=== PATIENT | male | born 1975 | race Caucasian/White ===

== ENCOUNTER 2023-10-13 21:34 | Emergency (ER) | payer OTHER, SELFPAY ==
[2023-10-13 21:38] VITALS: BP 176/114; PULSE 82; RESP 16; TEMP 36.9; O2SAT 98; BMI 32.9
[2023-10-13 22:10] VITALS: BP 160/98; PULSE 89; RESP 18; O2SAT 98
--- NOTE | 2023-10-13 22:20 | ED_ITS ---
HPI - Dental/Oral General Chief complaint: Dental/Oral Stated complaint: TOOTH ACHE Time Seen by Provider: 10/13/23 21:45 Source: patient Mode of arrival: walk-in History of Present Illness HPI Narrative: 47-year-old male to the emergency room chief complaint several days of dental pain. His right posterior molar had a previous cavity which was filled. Over the last six days he has had some increasing pain in this area. The ventricular Tylenol and ibuprofen at home with only minimal relief of symptoms. He will see his dentist early this week. Related Data Previous Rx's Medication Instructions Recorded hydrocodone 5 mg-acetaminophen 325 1 tab PO Q6H PRN pain 3 days #6 10/13/23 mg tablet tabs penicillin V potassium 500 mg 500 mg PO Q6H 7 days #28 tabs 10/13/23 tablet Allergies Allergy/AdvReac Type Severity Reaction Status Date / Time No Known Drug Allergies Allergy Verified 10/13/23 21:42 Review of Systems ROS Status of ROS 10 or more systems reviewed and unremark able except as noted in history and below Exam Narrative Exam Narrative: VITALS: I have reviewed the triage vital signs.? GENERAL: Well developed, well appearing adult in no acute distress.?? NEURO: Alert and oriented. Moves all extremities. Face is symmetric and expressive.? EYES: PERRL. No scleral icterus or conjunctival injection. No discharge.? HENT: Normocephalic, atraumatic. Hearing is grossly intact. Nares grossly patent and without discharge. Mucous membranes moist.?Generally poor dentition. Gingival erythema surrounding the right posterior lower molar with obvious caries. NECK: No JVD. Patient moves neck without restriction.? EXTREMITIES: Symmetric muscle bulk. No joint swelling. No clubbing, cyanosis, or deformity.? SKIN: Warm and dry. Normal turgor. No rash or lesions appreciated.? PSYCH: Mood, affect, and interaction is appropriate to the setting. Constitutional Vital Signs, click to edit/add: Last Vital Signs Temp 98.5 F 10/13/23 21:38 Pulse 89 10/13/23 22:10 Resp 18 10/13/23 22:10 BP 160/98 H 10/13/23 22:10 Pulse Ox 98 10/13/23 22:10 O2 Del Method Room Air 10/13/23 22:10 Course Vital Signs Vital signs: Vital Signs Temperature 98.5 F 10/13/23 21:38 Pulse Rate 82 10/13/23 21:38 Respiratory Rate 16 10/13/23 21:38 Blood Pressure 176/114 H 10/13/23 21:38 Pulse Oximetry 98 10/13/23 21:38 Oxygen Delivery Method Room Air 10/13/23 21:38 Temperature 98.5 F 10/13/23 21:38 Pulse Rate 89 10/13/23 22:10 Respiratory Rate 18 10/13/23 22:10 Blood Pressure 160/98 H 10/13/23 22:10 Pulse Oximetry 98 10/13/23 22:10 Oxygen Delivery Method Room Air 10/13/23 22:10 MDM - Dental/Oral MDM Narrative Medical decision making narrative: 47-year-old male with dental pain. Vital stable, patient is afebrile. Records r evjulianawed. He is given a short supply of narcotics he can see his dentist. He is given a prescription for penicillin.Return precautions were discussed. All questions were answered. Patient was discharged home. Discharge Plan Discharge Chief Complaint: Dental/Oral Clinical Impression: Dental abscess Patient Disposition: Home, Self-Care Time of Disposition Decision: 21:49 Condition: Good Mode of Transportation: Private Vehicle Prescriptions / Home Meds: New penicillin V potassium 500 mg tablet 500 mg PO Q6H 7 Days Qty: 28 0RF hydrocodone-acetaminophen 5-325 mg tablet 1 tab PO Q6H PRN (Reason: pain) 3 Days Qty: 6 0RF Print Language: Greenlandic Instructions: Dental Abscess (ED) Additional Instructions: Follow-up with her dentist early this week. Take medications as prescribed. Stand Alone Forms: Portal Instructions Referrals: HELIO REID [Primary Care Provider] - 1 week Discharge Date/Time: 10/13/23 22:12
== END 2023-10-13 22:12 | disposition home or self-care (01) ==
PROVIDERS: Emergency Provider Student in an Organized Health Care Education/Training Program; PCP Family Medicine
DX: K04.7 Periapical abscess without sinus (principal)
CPT/HCPCS: 99283

== ENCOUNTER 2024-01-08 14:13 | Outpatient (OUT) | payer OTHER, SELFPAY ==
--- NOTE | 2024-01-08 14:18 | XR_ITS ---
The [address] [address] Patient Name: JEFFREY CHIANG JR MRN: [id number] date: 1975 Sex: M Assigned Patient Location: [facility] Current Patient Location: Accession/Order Number: [id number] Exam Date: 01/08/2024 14:26 Report Date: 01/09/2024 09:02 At the request of: MONIQUE MONTOYA Procedure: XR shoulder RT min 2V PROCEDURE: XR shoulder RT min 2V HISTORY: right shoulder pain M25.511 , chronic COMPARISON: None. FINDINGS: BONES:Mild narrowing of the acromioclavicular joint and small undersurface osteophytes. Unremarkable humeral head and glenohumeral joint. SOFT TISSUES:No visible soft tissue swelling. EFFUSION:None visible. OTHER: Negative. XR/XR shoulder RT min 2V IMPRESSION: 1. No acute bone abnormality. 2. Mild degenerative changes of the acromioclavicular joints which can predispose to rotator cuff injury. Electronically authenticated by: LUCILLE MELISSA Date: 01/09/2024 09:02
--- OUTSIDE RECORDS SUMMARY | 2024-01-08 14:19 | XMS_ITS | CCD ---
Author Name Unknown Address [address] [facility] [facility] [address] [place] [address] Organization [facility] Care Team Providers Care Director Of Brand Marketing Name Role Phone REAL, DR DANIAL Mcclellan Consulting Unavailabl e BAUGH, DR TAMEKA Manriquez Primary Care Unavailable VARUNECK, DR DANIAL Mcclellan Attending Unavailabl e REINECK, DR DANIAL Mcclellan Admitting Unavailabl e Filippone, Tabihta Consulting Unavailable Ismael, Ana M Tafoya Primary Care Physician [phone] Ismael, Ana M Tafoya Attending Unavailable Ismael, Ana M Tafoya Attending Unavailable Ismael, Ana M Tafoya Attending Unavailable Ismael, Ana M Tafoya Attending Unavailable Ismael, Ana M Tafoya Attending Unavailable Ismael, Ana M Tafoya Admitting Unavailable Ismael, Ana M Tafoya Attending Unavailable Ismael, Ana M Tafoya Attending Unavailable Ismael, Ana M Tafoya Attending Unavailable Ismael, Ana M L Attending Unavailable Ismael, Ana M L Attending Unavailable Ismael, Ana M L Attending Unavailable Ismael, Ana M L Attending Unavailable Ismael, Ana M L Attending Unavailable Ismael, Ana M L Attending Unavailable Allergies Allergy Classification Reported Allergen(s) Allergy Type Date of Onset Reaction(s) Facility (1 source) No Known Medication Allergies; Translations: [No Known Medication Allergies] Propensity to adverse reactions (disorder) [facility] Repository Medications Current Medications Medication Drug Class(es) Dates Sig (Normalized) Sig (Original) albuterol 0.83 mg/ml inhalation solution (1 source) beta2-Adrenergic Agonist Start: 02-13-2023 take 2.5 mg by inhalation every four hours as needed albuterol 0.083% Inh Beth 3 mL 2.5 mg, 3 mL, NEB, q4hr, 100 EA, Refill(s) 1, as needed, [facility] #[id number], 176, cm, 02/13/23 9:01:00 EDT, Height/Length Dosing, 108.4, kg, 02/13/23 9:01:00 EDT, Weight Dosing Start Date: 02/13/23 Status: Ordered Albuterol (Eqv-ProAir HFA) 90 mcg/inh inhalation aerosol (1 source) Start: 02-13-2023 take 2 puff(s) by inhalation every six hours Albuterol (Eqv-ProAir HFA) 90 mcg/inh inhalation aerosol 2 puff(s), Inhalation, q6hr, 8.5 gm, Refill(s) 2, [facility] #[id number], 176, cm, 02/13/23 9:01:00 EDT, Height/Length Dosing, 108.4, kg, 02/13/23 9:01:00 EDT, Weight Dosing Start Date: 02/13/23 Status: Ordered bisoprolol fumarate 5 mg / hydroCHLOROthiazide 6.25 mg oral tablet (1 source) Thiazide Diuretic, beta-Adrenergic Elan Start: 02-13-2023 take 1 tablet by mouth once daily bisoprolol-hydr ochlorothiazide 5 mg-6.25 mg Tab 1 tab(s), Oral, Daily, 90 tab(s), Refill(s) 3, [facility] #[id number], 176, cm, 02/13/23 9:01:00 EDT, Height/Length Dosing, 108.4, kg, 02/13/23 9:01:00 EDT, Weight Dosing Start Date: 02/13/23 Status: Ordered 120 actuat fluticasone propionate 0.11 mg/actuat metered dose inhaler (2 sources) Corticosteroid Start: 02-13-2023 take 2 puff(s) by mouth twice daily Flovent HFA 110 Aerosol = 2 puff(s), Inhalation, BID, rinse mouth and throat after use, # 12 gram, Refills(s) 2, Pharmacy: [facility] #[id number], 176, cm, 02/13/23 9:01:00 EDT, Height/Length Dosing, 108.4, kg, 02/13/23 9:01:00 EDT, Weight Dosing Start Date: 02/13/23 Status: Ordered Start: 02-13-2023 Flonase 0.05 m g/inh [place] 2 spray(s), Nasal, Daily, 16 gram, Refill(s) 0, each nostril, [facility] #[id number], 176, cm, 02/13/23 9:01:00 EDT, Height/Length Dosing, 108.4, kg, 02/13/23 9:01:00 EDT, Weight Dosing Start Date: 02/13/23 Status: Ordered phentermine hydrochloride 37.5 mg oral tablet (1 source) Sympathomimetic Amine Anorectic Start: 03-04-2023 take 1 tablet by mouth once daily phentermine 37.5 mg Tab 37.5 mg = 1 tab(s), Oral, Daily, # 30 tab(s), Refills(s) 0, Pharmacy: [facility] #[id number], 176, cm, 03/04/23 8:31:00 EDT, Height/Length Dosing, 109.2, kg, 03/04/23 8:31:00 EDT, Weight Dosing Start Date: 03/04/23 Status: Ordered Problems Problem Classification Problem Date Documented Date Episodic/Chronic Asthma (2 sources) Unspecified asthma, uncomplicated; Translations: [Asthma] Onset: 01-08-2022 02-12-2023 Chronic Esophageal disorders (1 source) Gastroesophageal reflux disease 02-12-2023 Chronic Essential hypertension (1 source) Hypertensive disorder 02-12-2023 Chronic Nonspecific chest pain (1 source) Other chest pain; Translations: [OTHER CHEST PAIN] Onset: 01-08-2022 Episodic Other aftercare (1 source) Other superintendent terminal (current) drug therapy; Translations: [OTH CASING FLUID TENDER CURRENT DRUG THERAPY] Onset: 01-08-2022 Episodic Other connective tissue disease (1 source) Muscle atrophy 02-12-2023 Episodic Other lower respiratory disease (3 sources) Pleurodynia; Translations: [PLEURODYNIA] Onset: 01-07-2022 Episodic Other nervous system disorders (1 source) Complex regional pain syndrome of lower limb 02-12-2023 Chronic Other nutritional; endocrine; and metabolic disorders (1 source) Body mass index 30+ - obesity 03-04-2023 Chronic Skin and subcutaneous tissue infections (1 source) Cellulitis and abscess of lower limb 02-12-2023 Episodic Substance-related disorders (1 source) Smoker 03-04-2023 Chronic Unclassified (1 source) PERSONAL HISTORY OF COVID-19; Translations: [PERSONAL HISTORY OF COVID-19] Onset: 01-08-2022 Results Test Name Value Interpretation Reference Range Facility Physician Orderon 01-01-2024 Physician Order [id number] .00TIFF [facility] Ambulatory Visit Summaryon 0 12-31-2023 Ambulatory Visit Summary JEFFREY CHIANG :1975 Visit Date:12/31/2023 Ambulatory Visit Instructions Your Diagnosis Encounter for weight management Right shoulder pain BMI 33.0-33.9,adult Smoker Your Care Team Attending Physician - Ana M Bay Primary Care Physician - Ana M Bay This Is Your Medications List albuterol (albuterol 0.083% Inh Beth 3 mL) bisoprolol-hydrochlor othiazide (bisoprolol-hydrochlo rothiazide 5 mg-6.25 mg Tab) fluticasone (Flovent HFA 110 Aerosol) metformin (metformin 500 mg Tab) phentermine (phentermine 37.5 mg Tab) Procedures Performed Bilateral carpal tunnel syndrome, History of elbow surgery, Surgery. Discharge Vitals Heart Rate (Peripheral) 80 Respiratory Rate 18 Blood Pressure 136/84 Height 174 cm Height 69 in Weight 102.874 kg Weight 226.323 lb BMI 33.98 What to do next Scheduled Follow-Up Appointments 2023 3:00 PM EDT With: Ana M Bay Where: [facility] Family Medicine Jerry [facility] Family Medicine Office/Clini c Noteon 12-31-2023 Family Medicine Office/Clinic Note HPI Staff Jeffrey is a 48 year old male presenting for 1 month follow up Weight management: Started Phentermine on 11/04/23 Sleeping well:Yes, 6-8 hours Chest pain:No Tremors:No Headaches:No Heart fluttering:No Blurred Vision:No Beginning weight: 228.8Ibs Previous weight: 227.10Ibs Today's weight: 226 Ibs Questions/Concerns: need refill on albuterol Inhaler to [facility] in [place] History of Present Illness pt presents today for weight management Review of Systems PHQ Score Initial Depression Screen Score: 0 SCORE ROS - Provider Constitutional: no fever, no chills, no sweats, no fatigue Respiratory: no shortness of breath, no cough, no orthopnea, no wheezing. Cardiovascular: no chest pain, no palpitations, no edema. Neurologic: no headache, no dizziness, no numbness, no weakness. Physical Exam Vitals & Measurements HR: 80(Peripheral) RR: 18 BP: 136/84 SpO2: 95% HT: 69 in HT: 174 cm WT: 102.874 kg WT: 226.323 lb BMI: 33.98 General: alert, no acute distress ENMT: oral mucosa moist, no pharyngeal erythema or exudate Cardiovascular: regular rate and rhythm, normal peripheral perfusion Respiratory: Lungs CTA, respirations non labored Extremities: no deformity, no trauma Neurological: oriented x 4, LOC appropriate for age, CN II-XII intact, motor strength equal & normal bilaterally, speech normal Assessment/Plan 1. Encounter for weight management (Z76.89: Persons encountering health services in other specified circumstances) pt presents today for weight management. is down 1 pound. will continue adipex and metformin. RTC 4 weeks Ordered: liraglutide, 0.6 mg, SubCutaneous, Daily, increase dose by 0.6mg every 4 weeks. week 1: 0.6mg week 2: 1.2mg week 3: 1.8mg week 4: 2.4mg week 5+: 3.0mg, # 15 mL, Refills(s) 0, Pharmacy: [facility] #[id number], 174, cm, 12/02/23 14:25:00 EST, Height/Length Dosing, 103... metformin, 500 mg = 1 tab(s), Oral, BID, # 60 tab(s), Refills(s) 3, Pharmacy: [facility] #[id number], 174, cm, 12/02/23 14:25:00 EST, Height/Length Dosing, 103.2, kg, 12/02/23 14:25:00 EST, Weight Dosing metformin, 500 mg = 1 tab(s), Oral, BID, # 60 tab(s), Refills(s) 3, Pharmacy: [facility] #[id number], 174, cm, 12/31/23 14:35:00 EST, Height/Length Dosing, 102.9, kg, 12/31/23 14:35:00 EST, Weight Dosing 2. Right shoulder pain (M25.511: Pain in right shoulder) patient continues to have right shoulder pain. he has been taking ibuprofen and tylenol for the pain. has been doing at home exercises daily at home. but pain still continues. will order x ray and possibly MRI if necessary. xray order to be done at [facility] 3. BMI 33.0-33.9,adult (Z68.33: Body mass index [BMI] 33.0-33.9, adult) BMI education complete 4. Smoker (F17.200: Nicotine dependence, unspecified, uncomplicated) consider not smoking Orders: albuterol, 2.5 mg, 3 mL, NEB, q4hr, 100 EA, Refill(s) 1, as needed, [facility] #[id number], 174, cm, 12/31/23 14:35:00 EST, Height/Length Dosing, 102.9, kg, 12/31/23 14:35:00 EST, Weight Dosing albuterol, 2.5 mg, 3 mL, NEB, q4hr, 100 EA, Refill(s) 1, as needed, [facility] #[id number], 176, cm, 02/13/23 9:01:00 EDT, Height/Length Dosing, 108.4, kg, 02/13/23 9:01:00 EDT, Weight Dosing phentermine, 37.5 mg = 1 tab(s), Oral, Daily, # 30 tab(s), Refills(s) 0, Pharmacy: [facility] #[id number], 174, cm, 12/31/23 14:35:00 EST, Height/Length Dosing, 102.9, kg, 12/31/23 14:35:00 EST, Weight Dosing phentermine, 37.5 mg = 1 tab(s), Oral, Daily, # 30 tab(s), Refills(s) 0, Pharmacy: [facility] #[id number], 174, cm, 12/02/23 14:25:00 EST, Height/Length Dosing, 103.2, kg, 12/02/23 14:25:00 EST, Weight Dosing Follow-up No qualifying data available Problem List/Past Medical History Ongoing Asthma Atrophy of muscle BMI 32.0-32.9,adult BMI 35.0-35.9,adult Cellulitis and abscess of leg Encounter for weight management Excessive dietary caloric intake GERD (gastroesophageal reflux disease) Hypertension Insulin resistance Reflex sympathetic dystrophy of lower limb Right shoulder pain Smoker Historical No qualifying data Procedure/Surgical History Bilateral carpal tunnel syndrome, History of elbow surgery, Surgery. Medications albuterol 0.083% Inh Beth 3 mL, 2.5 mg= 3 mL, NEB, q4hr, 1 refills bisoprolol-hydrochlor othiazide 5 mg-6.25 mg Tab, 1 tab(s), Oral, Daily, 3 refills Flovent HFA 110 Aerosol, 2 puff(s), Inhalation, BID, 2 refills metformin 500 mg Tab, 500 mg= 1 tab(s), Oral, BID, 3 refills phentermine 37.5 mg Tab, 37.5 mg= 1 tab(s), Oral, Daily Allergies No Known Medication Allergies Social History Alcohol Current, Beer, Daily, 02/13/2023 Substance Abuse - Denies Substance Abuse, 02/13/2023 Tobacco 10 or more cigarettes (1/2 pack or more)/day in last 30 days Tobacco Use:. Never Smokeless Tobacco Use:. Cigarettes, Ready to change: No. Household tobacco concerns: No. Yes, 12/31/2023 Family History Hypertension: Mother and Father. Immunizations Vaccine Date Status Comments SARS-CoV-2 (C (more content not included)... Normal [facility] Comment on above: Result Comment: Elec tronically Signed By: Ana M Bay\.br\Date and Time Signed: 12/31/23 15:01 EST Ambulatory Visit Summaryon 0 12-02-2023 Ambulatory Visit Summary JEFFREY CHIANG :1975 Visit Date:12/02/2023 Ambulatory Visit Instructions Your Diagnosis BMI 34.0-34.9,adult Smoker Your Care Team Attending Physician - Ana M Bay Primary Care Physician - Ana M Bay This Is Your Medications List albuterol (albuterol 0.083% Inh Beth 3 mL) bisoprolol-hydrochlor othiazide (bisoprolol-hydrochlo rothiazide 5 mg-6.25 mg Tab) fluticasone (Flovent HFA 110 Aerosol) metformin (metformin 500 mg Tab) phentermine (phentermine 37.5 mg Tab) Procedures Performed Bilateral carpal tunnel syndrome, History of elbow surgery, Surgery. Discharge Vitals Heart Rate (Peripheral) 78 Respiratory Rate 18 Blood Pressure 134/88 Height 174 cm Height 69 in Weight 103.23 kg Weight 227.106 lb BMI 34.1 What to do next Scheduled Follow-Up Appointments Saturday 2:40 PM EST With: Ana M Bay Where: [facility] Family Medicine [facility] Normal [facility] Medicine Office/Clini c Noteon 12-02-2023 Family Medicine Office/Clinic Note HPI Staff Jeffrey is a 48 year old male presenting for 1 month follow up Weight management: Started Phentermine and Metformin on 11/04/23 Sleeping well:Yes, 6-8 hours Chest pain:No Tremors:No Headaches:No Heart fluttering:No Blurred Vision:No Beginning weight: 228.8Ibs/ 104.kg Previous weight: same Today's weight: 227.10 IBs/ 103.2kg Questions/Concerns: none History of Present Illness pt presents today for weight management Review of Systems PHQ Score Initial Depression Screen Score: 0 SCORE ROS - Provider Constitutional: no fever, no chills, no sweats, no fatigue Respiratory: no shortness of breath, no cough, no orthopnea, no wheezing. Cardiovascular: no chest pain, no palpitations, no edema. Neurologic: no headache, no dizziness, no numbness, no weakness. Physical Exam Vitals & Measurements HR: 78(Peripheral) RR: 18 BP: 134/88 SpO2: 98% HT: 69 in HT: 174 cm WT: 103.23 kg WT: 227.106 lb BMI: 34.1 General: alert, no acute distress ENMT: oral mucosa moist, no pharyngeal erythema or exudate Cardiovascular: regular rate and rhythm, normal peripheral perfusion Respiratory: Lungs CTA, respirations non labored Extremities: no deformity, no trauma Neurological: oriented x 4, LOC appropriate for age, CN II-XII intact, motor strength equal & normal bilaterally, speech normal Assessment/Plan 1. Encounter for weight management (Z76.89: Persons encountering health services in other specified circumstances) pt presents today for weight management. is down 1 pound since last visit. pt states he feels like the metformin didn't really make a difference. discussed trying sexenda to see if insurance will cover it. if insurance denies it, will send rx for adipex. RTC 4 weeks. Ordered: liraglutide, 0.6 mg, SubCutaneous, Daily, increase dose by 0.6mg every 4 weeks. week 1: 0.6mg week 2: 1.2mg week 3: 1.8mg week 4: 2.4mg week 5+: 3.0mg, # 15 mL, Refills(s) 0, Pharmacy: [facility] #[id number], 174, cm, 12/02/23 14:25:00 EST, Height/Length Dosing, 103... methylPREDNISolone, = 1 packet(s), Oral, As Directed, as directed on package labeling, X 6 day(s), # 21 tab(s), Refills(s) 0, Pharmacy: [facility] #[id number], 174, cm, 12/02/23 14:25:00 EST, Height/Length Dosing, 103.2, kg, 12/02/23 14:25:00 EST, Weight Dosing 2. Right shoulder pain (M25.511: Pain in right shoulder) medrol dose pack sent in possible tendonitis. pt states shoulder started hurting when bowling. and now he gets pain even at rest. may consider referral to pain management for injection Ordered: methylPREDNISolone, = 1 packet(s), Oral, As Directed, as directed on package labeling, X 6 day(s), # 21 tab(s), Refills(s) 0, Pharmacy: [facility] #[id number], 174, cm, 12/02/23 14:25:00 EST, Height/Length Dosing, 103.2, kg, 12/02/23 14:25:00 EST, Weight Dosing 3. BMI 34.0-34.9,adult (Z68.34: Body mass index [BMI] 34.0-34.9, adult) bmi education complete Ordered: methylPREDNISolone, = 1 packet(s), Oral, As Directed, as directed on package labeling, X 6 day(s), # 21 tab(s), Refills(s) 0, Pharmacy: [facility] #[id number], 174, cm, 12/02/23 14:25:00 EST, Height/Length Dosing, 103.2, kg, 12/02/23 14:25:00 EST, Weight Dosing 4. Smoker (F17.200: Nicotine dependence, unspecified, uncomplicated) consider not smoking Ordered: methylPREDNISolone, = 1 packet(s), Oral, As Directed, as directed on package labeling, X 6 day(s), # 21 tab(s), Refills(s) 0, Pharmacy: [facility] #[id number], 174, cm, 12/02/23 14:25:00 EST, Height/Length Dosing, 103.2, kg, 12/02/23 14:25:00 EST, Weight Dosing Follow-up No qualifying data available Problem List/Past Medical History Ongoing Asthma Atrophy of muscle BMI 32.0-32.9,adult BMI 35.0-35.9,adult Cellulitis and abscess of leg Encounter for weight management Excessive dietary caloric intake GERD (gastroesophageal reflux disease) Hypertension Insulin resistance Reflex sympathetic dystrophy of lower limb Right shoulder pain Smoker Historical No qualifying data Procedure/Surgical History Bilateral carpal tunnel syndrome, History of elbow surgery, Surgery. Medications albuterol 0.083% Inh Beth 3 mL, 2.5 mg= 3 mL, NEB, q4hr, 1 refills bisoprolol-hydrochlor othiazide 5 mg-6.25 mg Tab, 1 tab(s), Oral, Daily, 3 refills Flovent HFA 110 Aerosol, 2 puff(s), Inhalation, BID, 2 refills liraglutide 6 mg/mL subcutaneous injection, 0.6 mg, SubCutaneous, Daily Medrol 4 mg Tab, 1 packet(s), Oral, As Directed metformin 500 mg Tab, 500 mg= 1 tab(s), Oral, BID, 1 refills phentermine 37.5 mg Tab, 37.5 mg= 1 tab(s), Oral, Daily Allergies No Known Medication Allergies Social History Alcohol Current, Beer, Daily, 02/13/2023 Substance Abuse - Denies Substance Abuse, 02/13/2023 Tobacco 10 or more cigarettes (1/2 pack or more)/day in last 30 days Tobacco Use:. Never Smokeless Tobacco Use:. Cigarettes, Ready to change: No. Household tobacco concerns: No. Yes, 12/02/2023 Family History Hypertension: Mother and Father. Immunizations Vaccine (more content not included)... Normal [facility] Comment on above: Result Comment: Elec tronically Signed By: Ana M Bay\.br\Date and Time Signed: 12/02/23 15:07 EST Ambulatory Visit Summaryon 0 11-04-2023 Ambulatory Visit Summary JEFFREY CHIANG :1975 Visit Date:11/04/2023 Ambulatory Visit Instructions Your Diagnosis Encounter for weight management BMI 34.0-34.9,adult Your Care Team Attending Physician - Ana M Bay Primary Care Physician - Ana M Bay This Is Your Medications List albuterol (albuterol 0.083% Inh Beth 3 mL) bisoprolol-hydrochlor othiazide (bisoprolol-hydrochlo rothiazide 5 mg-6.25 mg Tab) fluticasone (Flovent HFA 110 Aerosol) phentermine (phentermine 37.5 mg Tab) semaglutide (Ozempic 2 mg/3 mL (0.25 mg or 0.5 mg dose) subcutaneous solution) Procedures Performed Bilateral carpal tunnel syndrome, History of elbow surgery, Surgery. Discharge Vitals Heart Rate (Peripheral) 74 Blood Pressure 128/78 Height 174.0 cm Height 69 in Weight 104.0 kg Weight 228.8 lb BMI 34.35 What to do next Scheduled Follow-Up Appointments Saturday 3:00 PM EST With: nAa M Bay Where: [facility] Family Medicine Jerry Normal [facility] Family Medicine Office/Clini c Noteon 11-04-2023 Family Medicine Office/Clinic Note Chief Complaint interested in weight loss HPI Staff Jeffrey is a 48 year old male presenting to discuss weight loss Weight management Sleeping well:Yes, 5 hourse. Patient reports this is normal for him. Chest pain:No Tremors:No Headaches:No Heart fluttering:No Blurred Vision:No Questions/Concerns: Ozempic was not started as insurance would not approve it and Buderer cost was $200. It was too expensive. current weight: 104.0 kg Current BMI 34.35 History of Present Illness pt presents today for weight managment Review of Systems PHQ Score Initial Depression Screen Score: 0 SCORE ROS - Provider Constitutional: no fever, no chills, no sweats, no fatigue Respiratory: no shortness of breath, no cough, no orthopnea, no wheezing. Cardiovascular: no chest pain, no palpitations, no edema. Neurologic: no headache, no dizziness, no numbness, no weakness. Physical Exam Vitals & Measurements HR: 74(Peripheral) BP: 128/78 SpO2: 97% HT: 69 in HT: 174.0 cm WT: 104.0 kg WT: 228.8 lb BMI: 34.35 General: alert, no acute distress ENMT: oral mucosa moist, no pharyngeal erythema or exudate Cardiovascular: regular rate and rhythm, normal peripheral perfusion Respiratory: Lungs CTA, respirations non labored Extremities: no deformity, no trauma Neurological: oriented x 4, LOC appropriate for age, CN II-XII intact, motor strength equal & normal bilaterally, speech normal Assessment/Plan 1. Encounter for weight management (Z76.89: Persons encountering health services in other specified circumstances) pt presents today to discuss weight management,. pt has put on 13 pounds since June. is unable to afford ozempic will order adipex and metformin. RTC 4 weeks Ordered: metformin, 500 mg = 1 tab(s), Oral, BID, # 60 tab(s), Refills(s) 1, Pharmacy: [facility] #[id number], 174, cm, 11/04/23 14:47:00 EST, Height/Length Dosing, 104, kg, 11/04/23 14:47:00 EST, Weight Dosing 2. BMI 34.0-34.9,adult (Z68.34: Body mass index [BMI] 34.0-34.9, adult) BMI education complete Ordered: metformin, 500 mg = 1 tab(s), Oral, BID, # 60 tab(s), Refills(s) 1, Pharmacy: [facility] #[id number], 174, cm, 11/04/23 14:47:00 EST, Height/Length Dosing, 104, kg, 11/04/23 14:47:00 EST, Weight Dosing Orders: phentermine, 37.5 mg = 1 tab(s), Oral, Daily, # 30 tab(s), Refills(s) 0, Pharmacy: [facility] #[id number], 174, cm, 11/04/23 14:47:00 EST, Height/Length Dosing, 104, kg, 11/04/23 14:47:00 EST, Weight Dosing Follow-up No qualifying data available Problem List/Past Medical History Ongoing Asthma Atrophy of muscle BMI 32.0-32.9,adult BMI 35.0-35.9,adult Cellulitis and abscess of leg Encounter for weight management Excessive dietary caloric intake GERD (gastroesophageal reflux disease) Hypertension Insulin resistance Reflex sympathetic dystrophy of lower limb Smoker Historical No qualifying data Procedure/Surgical History Bilateral carpal tunnel syndrome, History of elbow surgery, Surgery. Medications albuterol 0.083% Inh Beth 3 mL, 2.5 mg= 3 mL, NEB, q4hr, 1 refills bisoprolol-hydrochlor othiazide 5 mg-6.25 mg Tab, 1 tab(s), Oral, Daily, 3 refills Flovent HFA 110 Aerosol, 2 puff(s), Inhalation, BID, 2 refills metformin 500 mg Tab, 500 mg= 1 tab(s), Oral, BID, 1 refills Ozempic 2 mg/3 mL (0.25 mg or 0.5 mg dose) subcutaneous solution, 0.25 mg, SubCutaneous, qWeek phentermine 37.5 mg Tab, 37.5 mg= 1 tab(s), Oral, Daily Allergies No Known Medication Allergies Social History Alcohol Current, Beer, Daily, 02/13/2023 Substance Abuse - Denies Substance Abuse, 02/13/2023 Tobacco 10 or more cigarettes (1/2 pack or more)/day in last 30 days Tobacco Use:. Never Smokeless Tobacco Use:. Cigarettes, Ready to change: No. Household tobacco concerns: No. Yes, 11/04/2023 Family History Hypertension: Mother and Father. Immunizations Vaccine Date Status Comments SARS-CoV-2 (COVID-19) mRNA BNT-162b2 vax 10/24/2021 Recorded SARS-CoV-2 (COVID-19) Ad26 vaccine 03/17/2021 Recorded 2023-02-12: [id number] Normal [facility] Comment on above: Result Comment: Elec tronically Signed By: Ana M Bay\.br\Date and Time Signed: 11/04/23 15:15 EST Pre-Certification Formon Pre-Certification Form [id number]. 00TIFF [facility] Retail - Clinical Noteon Retail - Clinical Note [id number]. 00TIFF [facility] Ambulatory Visit Summaryon 1 Ambulatory Visit Summary JEFFREY CHIANG :1975 Visit Date:08/21/2023 Ambulatory Visit Instructions Your Diagnosis Insulin resistance Encounter for weight management BMI 33.0-33.9,adult Smoker Your Care Team Attending Physician - Ana M Bay Primary Care Physician - Ana M Bay This Is Your Medications List albuterol (albuterol 0.083% Inh Beth 3 mL) bisoprolol-hydrochlor othiazide (bisoprolol-hydrochlo rothiazide 5 mg-6.25 mg Tab) fluticasone (Flovent HFA 110 Aerosol) phentermine (phentermine 37.5 mg Tab) semaglutide (Ozempic 2 mg/3 mL (0.25 mg or 0.5 mg dose) subcutaneous solution) Procedures Performed Bilateral carpal tunnel syndrome, History of elbow surgery, Surgery. Discharge Vitals Heart Rate (Peripheral) 84 Respiratory Rate 18 Blood Pressure 130/84 Height 174 cm Height 69 in Weight 101.9 kg Weight 224.18 lb BMI 33.66 What to do next Scheduled Follow-Up Appointments Saturday 3:00 PM EST With: Ana M Bay Where: [facility] Family Medicine Office/Clini c Noteon 08-21-2023 Family Medicine Office/Clinic Note HPI Staff Jeffrey is a 47 year old male presenting for 1 month follow up Weight management: Started Phentermine on 03/04/23 Sleeping well:Yes, 6-8 hours Chest pain:No Tremors:No Headaches:No Heart fluttering:No Blurred Vision:No Beginning weight: 240.24Ibs/109.2kg Previous weight: 20453Sex/97.97Kg Today's weight: 101.9Kg/224.18ibs Questions/Concerns: pt says he has joined the [employer] center but hasn't gone yet and doesn't think his eating choices have been the best. History of Present Illness pt presetns for weight managment Review of Systems PHQ Score Initial Depression Screen Score: 0 ROS - Provider Constitutional: no fever, no chills, no sweats, no fatigue Respiratory: no shortness of breath, no cough, no orthopnea, no wheezing. Cardiovascular: no chest pain, no palpitations, no edema. Neurologic: no headache, no dizziness, no numbness, no weakness. Physical Exam Vitals & Measurements HR: 84(Peripheral) RR: 18 BP: 130/84 SpO2: 98% HT: 69 in HT: 174 cm WT: 101.9 kg WT: 224.18 lb BMI: 33.66 General: alert, no acute distress ENMT: oral mucosa moist, no pharyngeal erythema or exudate Cardiovascular: regular rate and rhythm, normal peripheral perfusion Respiratory: Lungs CTA, respirations non labored Extremities: no deformity, no trauma Neurological: oriented x 4, LOC appropriate for age, CN II-XII intact, motor strength equal & normal bilaterally, speech normal Assessment/Plan 1. Insulin resistance (E88.819: Insulin resistance, unspecified) pt presents to discuss weight management. adipex is not longer effective. pt has gained 8 pounds since last visit. will order ozempic through pharmacy. if insurance does not cover it, will send order to [facility]. all questions answered. RTC 4 weeks Ordered: semaglutide, 0.25 mg, SubCutaneous, qWeek, # 1 EA, Refills(s) 0, Pharmacy: [facility] #[id number], 174, cm, 08/21/23 14:21:00 EDT, Height/Length Dosing, 101.9, kg, 08/21/23 14:21:00 EDT, Weight Dosing 2. Encounter for weight management (Z76.89: Persons encountering health services in other specified circumstances) see above Ordered: semaglutide, 0.25 mg, SubCutaneous, qWeek, # 1 EA, Refills(s) 0, Pharmacy: [facility] #[id number], 174, cm, 08/21/23 14:21:00 EDT, Height/Length Dosing, 101.9, kg, 08/21/23 14:21:00 EDT, Weight Dosing 3. BMI 33.0-33.9,adult (Z68.33: Body mass index [BMI] 33.0-33.9, adult) BMI education complete Ordered: semaglutide, 0.25 mg, SubCutaneous, qWeek, # 1 EA, Refills(s) 0, Pharmacy: [facility] #[id number], 174, cm, 08/21/23 14:21:00 EDT, Height/Length Dosing, 101.9, kg, 08/21/23 14:21:00 EDT, Weight Dosing 4. Smoker (F17.200: Nicotine dependence, unspecified, uncomplicated) consider not smoking Ordered: semaglutide, 0.25 mg, SubCutaneous, qWeek, # 1 EA, Refills(s) 0, Pharmacy: [facility] #[id number], 174, cm, 08/21/23 14:21:00 EDT, Height/Length Dosing, 101.9, kg, 08/21/23 14:21:00 EDT, Weight Dosing Follow-up No qualifying data available Problem List/Past Medical History Ongoing Asthma Atrophy of muscle BMI 32.0-32.9,adult BMI 35.0-35.9,adult Cellulitis and abscess of leg Encounter for weight management Excessive dietary caloric intake GERD (gastroesophageal reflux disease) Hypertension Insulin resistance Reflex sympathetic dystrophy of lower limb Smoker Historical No qualifying data Procedure/Surgical History Bilateral carpal tunnel syndrome, History of elbow surgery, Surgery. Medications albuterol 0.083% Inh Beth 3 mL, 2.5 mg= 3 mL, NEB, q4hr, 1 refills bisoprolol-hydrochlor othiazide 5 mg-6.25 mg Tab, 1 tab(s), Oral, Daily, 3 refills Flovent HFA 110 Aerosol, 2 puff(s), Inhalation, BID, 2 refills Ozempic 2 mg/3 mL (0.25 mg or 0.5 mg dose) subcutaneous solution, 0.25 mg, SubCutaneous, qWeek phentermine 37.5 mg Tab, 37.5 mg= 1 tab(s), Oral, Daily Allergies No Known Medication Allergies Social History Alcohol Current, Beer, Daily, 02/13/2023 Substance Abuse - Denies Substance Abuse, 02/13/2023 Tobacco 10 or more cigarettes (1/2 pack or more)/day in last 30 days Tobacco Use:. Never Smokeless Tobacco Use:. Cigarettes, Ready to change: No. Household tobacco concerns: No. Yes, 08/21/2023 Family History Hypertension: Mother and Father. Immunizations Vaccine Date Status Comments SARS-CoV-2 (COVID-19) mRNA BNT-162b2 vax 10/24/2021 Recorded SARS-CoV-2 (COVID-19) Ad26 vaccine 03/17/2021 Recorded 2023-02-12: [id number] [facility] Comment on above: Result Comment: Elec tronically Signed By: Ana M Bay\.br\Date and Time Signed: 08/21/23 15:52 EDT Ambulatory Visit Summaryon 0 07-24-2023 Ambulatory Visit Summary JEFFREY CHIANG Lottie :1975 Visit Date:07/24/2023 Ambulatory Visit Instructions Your Diagnosis Encounter for weight management Your Care Team Attending Physician - Ana M Bay Primary Care Physician - Ana M Bay This Is Your Medications List albuterol (albuterol 0.083% Inh Beth 3 mL) bisoprolol-hydrochlor othiazide (bisoprolol-hydrochlo rothiazide 5 mg-6.25 mg Tab) fluticasone (Flovent HFA 110 Aerosol) phentermine (phentermine 37.5 mg Tab) Procedures Performed Bilateral carpal tunnel syndrome, History of elbow surgery, Surgery. Discharge Vitals Heart Rate (Peripheral) 70 Respiratory Rate 18 Blood Pressure 134/86 Height 174 cm Height 69 in Weight 97.97 kg Weight 215.534 lb BMI 32.36 What to do next Scheduled Follow-Up Appointments Saturday 2:40 PM EDT With: Ana M Bay Where: [facility] Family Medicine Office/Clini c Noteon 07-24-2023 Family Medicine Office/Clinic Note HPI Staff Castle is a 47 year old male presenting for 1 month follow up OV 06/26/23 weight was 97.4kg/214.28Ibs Today's weight: 216.0Ibs/97.97 Weight management Sleeping well:Yes, 6-8 hours Chest pain:No Tremors:No Headaches:No Heart fluttering:No Blurred Vision:No Questions/Concerns: none History of Present Illness pt presents today for weight management. Review of Systems PHQ Score Initial Depression Screen Score: 0 ROS - Provider Constitutional: no fever, no chills, no sweats, no fatigue Respiratory: no shortness of breath, no cough, no orthopnea, no wheezing. Cardiovascular: no chest pain, no palpitations, no edema. Neurologic: no headache, no dizziness, no numbness, no weakness. Physical Exam Vitals & Measurements HR: 70(Peripheral) RR: 18 BP: 134/86 SpO2: 98% HT: 69 in HT: 174 cm WT: 97.97 kg WT: 215.534 lb BMI: 32.36 General: alert, no acute distress ENMT: oral mucosa moist, no pharyngeal erythema or exudate Cardiovascular: regular rate and rhythm, normal peripheral perfusion Respiratory: Lungs CTA, respirations non labored Extremities: no deformity, no trauma Neurological: oriented x 4, LOC appropriate for age, CN II-XII intact, motor strength equal & normal bilaterally, speech normal Assessment/Plan 1. Encounter for weight management (Z76.89: Persons encountering health services in other specified circumstances) pt presents today for weight management. he is up 1 pound. he is discouraged today. he started a new shift and feels he is not making good food choices right now. and eats right before he goes to bed. will refill another month. if no weight loss will take a break from adipex. all questions answered. RTC 4 weeks. 2. BMI 32.0-32.9,adult (Z68.32: Body mass index [BMI] 32.0-32.9, adult) BMI education complete Orders: albuterol, 2 puff(s), Inhalation, q6hr, 8.5 gm, Refill(s) 2, [facility] #[id number], 174, cm, 05/01/23 12:56:00 EDT, Height/Length Dosing, 101.8, kg, 05/01/23 12:56:00 EDT, Weight Dosing fluticasone nasal, 2 spray(s), Nasal, Daily, 16 gram, Refill(s) 0, each nostril, [facility] #[id number], 176, cm, 02/13/23 9:01:00 EDT, Height/Length Dosing, 108.4, kg, 02/13/23 9:01:00 EDT, Weight Dosing fluticasone-salmetero l, 2 puff(s), Inhalation, BID, 1 EA, Refill(s) 6, [facility] #[id number], 174, cm, 05/01/23 12:56:00 EDT, Height/Length Dosing, 101.8, kg, 05/01/23 12:56:00 EDT, Weight Dosing phentermine, 37.5 mg = 1 tab(s), Oral, Daily, X 30 day(s), # 30 tab(s), Refills(s) 0, Pharmacy: [facility] #[id number], 174, cm, 06/26/23 12:58:00 EDT, Height/Length Dosing, 97.4, kg, 06/26/23 12:58:00 EDT, Weight Dosing phentermine, 37.5 mg = 1 tab(s), Oral, Daily, X 30 day(s), # 30 tab(s), Refills(s) 0, Pharmacy: [facility] #[id number], 174, cm, 07/24/23 14:20:00 EDT, Height/Length Dosing, 97.9, kg, 07/24/23 14:20:00 EDT, Weight Dosing Follow-up No qualifying data available Problem List/Past Medical History Ongoing Asthma Atrophy of muscle BMI 32.0-32.9,adult BMI 35.0-35.9,adult Cellulitis and abscess of leg Encounter for weight management Excessive dietary caloric intake GERD (gastroesophageal reflux disease) Hypertension Reflex sympathetic dystrophy of lower limb Smoker Historical No qualifying data Procedure/Surgical History Bilateral carpal tunnel syndrome, History of elbow surgery, Surgery. Medications albuterol 0.083% Inh Beth 3 mL, 2.5 mg= 3 mL, NEB, q4hr, 1 refills bisoprolol-hydrochlor othiazide 5 mg-6.25 mg Tab, 1 tab(s), Oral, Daily, 3 refills Flovent HFA 110 Aerosol, 2 puff(s), Inhalation, BID, 2 refills phentermine 37.5 mg Tab, 37.5 mg= 1 tab(s), Oral, Daily Allergies No Known Medication Allergies Social History Alcohol Current, Beer, Daily, 02/13/2023 Substance Abuse - Denies Substance Abuse, 02/13/2023 Tobacco 10 or more cigarettes (1/2 pack or more)/day in last 30 days Tobacco Use:. Never Smokeless Tobacco Use:. Cigarettes, Ready to change: No. Household tobacco concerns: No. Yes, 07/24/2023 Family History Hypertension: Mother and Father. Immunizations Vaccine Date Status Comments SARS-CoV-2 (COVID-19) mRNA BNT-162b2 vax 10/24/2021 Recorded SARS-CoV-2 (COVID-19) Ad26 vaccine 03/17/2021 Recorded 2023-02-12: [id number] [facility] Comment on above: Result Comment: Elec tronically Signed By: Ana M Bay\.br\Date and Time Signed: 07/24/23 14:34 EDT Ambulatory Visit Summaryon 0 06-26-2023 Ambulatory Visit Summary JEFFREY CHIANG :1975 Visit Date:06/26/2023 Ambulatory Visit Instructions Your Diagnosis Encounter for weight management BMI 32.0-32.9,adult Non-smoker Your Care Team Attending Physician - Ana M Bay Primary Care Physician - Ana M Bay This Is Your Medications List albuterol (Albuterol (Eqv-ProAir HFA) 90 mcg/inh inhalation aerosol) albuterol (albuterol 0.083% Inh Beth 3 mL) bisoprolol-hydrochlor othiazide (bisoprolol-hydrochlo rothiazide 5 mg-6.25 mg Tab) fluticasone (Flovent HFA 110 Aerosol) fluticasone nasal (Flonase 0.05 mg/inh [place]) fluticasone-salmetero l (fluticasone-salmeter ol 115 mcg-21 mcg Inh Aer w/adapter) phentermine (phentermine 37.5 mg Tab) Procedures Performed Bilateral carpal tunnel syndrome, History of elbow surgery, Surgery. Discharge Vitals Heart Rate (Peripheral) 78 Respiratory Rate 18 Blood Pressure 114/68 Height 174 cm Height 69 in Weight 97.4 kg Weight 214.28 lb BMI 32.17 What to do next Scheduled Follow-Up Appointments Saturday 1:00 PM EDT With: Ana M Bay Where: [facility] Family Medicine Office/Clini c Noteon 06-26-2023 Family Medicine Office/Clinic Note HPI Staff Jeffrey is a 47 year old male presenting for 1 month follow up Weight management 05/29/2023 4th month follow up refill Phentermine Last weight: 99.9kg/219.78Ibs Todays weight: 97.4kg/214.28 Sleeping well:Yes, 6-8 hours Chest pain:No Tremors:No Headaches:No Heart fluttering:No Blurred Vision:No History of Present Illness pt presents today for weight management. pt is down another 5 pounds Review of Systems PHQ Score Initial Depression Screen Score: 0 ROS - Provider Constitutional: no fever, no chills, no sweats, no fatigue Respiratory: no shortness of breath, no cough, no orthopnea, no wheezing. Cardiovascular: no chest pain, no palpitations, no edema. Neurologic: no headache, no dizziness, no numbness, no weakness. Physical Exam Vitals & Measurements HR: 78(Peripheral) RR: 18 BP: 114/68 SpO2: 99% HT: 69 in HT: 174 cm WT: 97.4 kg WT: 214.28 lb BMI: 32.17 General: alert, no acute distress ENMT: oral mucosa moist, no pharyngeal erythema or exudate Cardiovascular: regular rate and rhythm, normal peripheral perfusion Respiratory: Lungs CTA, respirations non labored Extremities: no deformity, no trauma Neurological: oriented x 4, LOC appropriate for age, CN II-XII intact, motor strength equal & normal bilaterally, speech normal Assessment/Plan 1. Encounter for weight management (Z76.89: Persons encountering health services in other specified circumstances) pt is doing well total weight loss is 26 pounds so far. pt would like to continue. He would like to get down to 200. all questions answered. RTC 4 weeks 2. BMI 32.0-32.9,adult (Z68.32: Body mass index [BMI] 32.0-32.9, adult) BMI education complete 3. Non-smoker (Z78.9: Other specified health status) continue not smoking Orders: phentermine, 37.5 mg = 1 tab(s), Oral, Daily, X 30 day(s), # 30 tab(s), Refills(s) 0, Pharmacy: [facility] #[id number], 174, cm, 06/26/23 12:58:00 EDT, Height/Length Dosing, 97.4, kg, 06/26/23 12:58:00 EDT, Weight Dosing phentermine, 37.5 mg = 1 tab(s), Oral, Daily, # 30 tab(s), Refills(s) 0, Pharmacy: [facility] #[id number], 174, cm, 05/29/23 13:13:00 EDT, Height/Length Dosing, 99.9, kg, 05/29/23 13:13:00 EDT, Weight Dosing Follow-up No qualifying data available Problem List/Past Medical History Ongoing Asthma Atrophy of muscle BMI 35.0-35.9,adult Cellulitis and abscess of leg Encounter for weight management Excessive dietary caloric intake GERD (gastroesophageal reflux disease) Hypertension Reflex sympathetic dystrophy of lower limb Smoker Historical No qualifying data Procedure/Surgical History Bilateral carpal tunnel syndrome, History of elbow surgery, Surgery. Medications Albuterol (Eqv-ProAir HFA) 90 mcg/inh inhalation aerosol, 2 puff(s), Inhalation, q6hr, 2 refills albuterol 0.083% Inh Beth 3 mL, 2.5 mg= 3 mL, NEB, q4hr, 1 refills bisoprolol-hydrochlor othiazide 5 mg-6.25 mg Tab, 1 tab(s), Oral, Daily, 3 refills Flonase 0.05 mg/inh [place], 2 spray(s), Nasal, Daily Flovent HFA 110 Aerosol, 2 puff(s), Inhalation, BID, 2 refills fluticasone-salmetero l 115 mcg-21 mcg Inh Aer w/adapter, 2 puff(s), Inhalation, BID, 6 refills phentermine 37.5 mg Tab, 37.5 mg= 1 tab(s), Oral, Daily Allergies No Known Medication Allergies Social History Alcohol Current, Beer, Daily, 02/13/2023 Substance Abuse - Denies Substance Abuse, 02/13/2023 Tobacco 10 or more cigarettes (1/2 pack or more)/day in last 30 days Tobacco Use:. Never Smokeless Tobacco Use:. Cigarettes, Ready to change: No. Household tobacco concerns: No. Yes, 06/26/2023 Family History Hypertension: Mother and Father. Immunizations Vaccine Date Status Comments SARS-CoV-2 (COVID-19) mRNA BNT-162b2 vax 10/24/2021 Recorded SARS-CoV-2 (COVID-19) Ad26 vaccine 03/17/2021 Recorded 2023-02-12: [id number] [facility] Comment on above: Result Comment: Elec tronically Signed By: Ana M Bay\.br\Date and Time Signed: 06/26/23 13:09 EDT Ambulatory Visit Summaryon 0 05-29-2023 Ambulatory Visit Summary CHAUNCEYADITYAJEFFREY :1975 Visit Date:05/29/2023 Ambulatory Visit Instructions Your Diagnosis BMI 33.0-33.9,adult Smoker Your Care Team Attending Physician - Ana M Bay Primary Care Physician - Ana M Bay This Is Your Medications List albuterol (Albuterol (Eqv-ProAir HFA) 90 mcg/inh inhalation aerosol) albuterol (albuterol 0.083% Inh Beth 3 mL) bisoprolol-hydrochlor othiazide (bisoprolol-hydrochlo rothiazide 5 mg-6.25 mg Tab) fluticasone (Flovent HFA 110 Aerosol) fluticasone nasal (Flonase 0.05 mg/inh [place]) fluticasone-salmetero l (fluticasone-salmeter ol 115 mcg-21 mcg Inh Aer w/adapter) phentermine (phentermine 37.5 mg Tab) Procedures Performed Bilateral carpal tunnel syndrome, History of elbow surgery, Surgery. Discharge Vitals Heart Rate (Peripheral) 78 Respiratory Rate 18 Blood Pressure 128/88 Height 174 cm Height 69 in Weight 99.9 kg Weight 219.78 lb BMI 33 What to do next Scheduled Follow-Up Appointments Saturday 1:00 PM EDT With: Ana M Bay Where: [facility] Family Medicine Office/Clini c Noteon 05-29-2023 Family Medicine Office/Clinic Note HPI Staff Jeffrey is a 47 year old male presenting for 1 month follow up weight management Weight management pt here for follow up Phentermine last OV was patient 3rd month for medication Previous weight: 101.8kg/223.96Ibs Todays weight: 99.9 Kg/219.78Ibs Sleeping well:Yes, 6-8 hours Chest pain:No Tremors:No Headaches:No Heart fluttering:No Blurred Vision:No History of Present Illness pt presents today for weight management Review of Systems PHQ Score Initial Depression Screen Score: 0 ROS - Provider Constitutional: no fever, no chills, no sweats, no fatigue Respiratory: no shortness of breath, no cough, no orthopnea, no wheezing. Cardiovascular: no chest pain, no palpitations, no edema. Neurologic: no headache, no dizziness, no numbness, no weakness. Physical Exam Vitals & Measurements HR: 78(Peripheral) RR: 18 BP: 128/88 SpO2: 96% HT: 69 in HT: 174 cm WT: 99.9 kg WT: 219.78 lb BMI: 33 General: alert, no acute distress ENMT: oral mucosa moist, no pharyngeal erythema or exudate Cardiovascular: regular rate and rhythm, normal peripheral perfusion Respiratory: Lungs CTA, respirations non labored Extremities: no deformity, no trauma Neurological: oriented x 4, LOC appropriate for age, CN II-XII intact, motor strength equal & normal bilaterally, speech normal Assessment/Plan 1. Encounter for weight management (Z76.89: Persons encountering health services in other specified circumstances) pt presents today for weight management. pt has lost a total of 21 pounds so far. would like to continue adipex if possible. new rule of medical board states if lost >5% of total body weight can continue treatment greater than 3 months. If pharmacy will not fill it, we will start metformin. all questions answered. RTC 4 weeks 2. Excessive dietary caloric intake (R63.2: Polyphagia) see above 3. BMI 33.0-33.9,adult (Z68.33: Body mass index [BMI] 33.0-33.9, adult) BMI education complete 4. Smoker (F17.200: Nicotine dependence, unspecified, uncomplicated) continue not smoking Orders: phentermine, 37.5 mg = 1 tab(s), Oral, Daily, # 30 tab(s), Refills(s) 0, Pharmacy: [facility] #[id number], 174, cm, 05/01/23 12:56:00 EDT, Height/Length Dosing, 101.8, kg, 05/01/23 12:56:00 EDT, Weight Dosing phentermine, 37.5 mg = 1 tab(s), Oral, Daily, # 30 tab(s), Refills(s) 0, Pharmacy: [facility] #[id number], 174, cm, 05/29/23 13:13:00 EDT, Height/Length Dosing, 99.9, kg, 05/29/23 13:13:00 EDT, Weight Dosing Follow-up No qualifying data available Problem List/Past Medical History Ongoing Asthma Atrophy of muscle BMI 35.0-35.9,adult Cellulitis and abscess of leg Encounter for weight management Excessive dietary caloric intake GERD (gastroesophageal reflux disease) Hypertension Reflex sympathetic dystrophy of lower limb Smoker Historical No qualifying data Procedure/Surgical History Bilateral carpal tunnel syndrome, History of elbow surgery, Surgery. Medications Albuterol (Eqv-ProAir HFA) 90 mcg/inh inhalation aerosol, 2 puff(s), Inhalation, q6hr, 2 refills albuterol 0.083% Inh Beth 3 mL, 2.5 mg= 3 mL, NEB, q4hr, 1 refills bisoprolol-hydrochlor othiazide 5 mg-6.25 mg Tab, 1 tab(s), Oral, Daily, 3 refills Flonase 0.05 mg/inh [place], 2 spray(s), Nasal, Daily Flovent HFA 110 Aerosol, 2 puff(s), Inhalation, BID, 2 refills fluticasone-salmetero l 115 mcg-21 mcg Inh Aer w/adapter, 2 puff(s), Inhalation, BID, 6 refills phentermine 37.5 mg Tab, 37.5 mg= 1 tab(s), Oral, Daily Allergies No Known Medication Allergies Social History Alcohol Current, Beer, Daily, 02/13/2023 Substance Abuse - Denies Substance Abuse, 02/13/2023 Tobacco 10 or more cigarettes (1/2 pack or more)/day in last 30 days Tobacco Use:. Never Smokeless Tobacco Use:. Cigarettes, Ready to change: No. Household tobacco concerns: No. Yes, 05/29/2023 Family History Hypertension: Mother and Father. Immunizations Vaccine Date Status Comments SARS-CoV-2 (COVID-19) mRNA BNT-162b2 vax 10/24/2021 Recorded SARS-CoV-2 (COVID-19) Ad26 vaccine 03/17/2021 Recorded 2023-02-12: [id number] [facility] Comment on above: Result Comment: Elec tronically Signed By: Ana M Bay\.br\Date and Time Signed: 05/29/23 13:32 EDT Ambulatory Visit Summaryon 0 05-01-2023 Ambulatory Visit Summary JEFFREY CHIANG :1975 Visit Date:05/01/2023 Ambulatory Visit Instructions Your Diagnosis Encounter for weight management Excessive dietary caloric intake Asthma BMI 33.0-33.9,adult Smoker Your Care Team Attending Physician - Ana M Bay Primary Care Physician - Ana M Bay This Is Your Medications List albuterol (Albuterol (Eqv-ProAir HFA) 90 mcg/inh inhalation aerosol) albuterol (albuterol 0.083% Inh Beth 3 mL) bisoprolol-hydrochlor othiazide (bisoprolol-hydrochlo rothiazide 5 mg-6.25 mg Tab) fluticasone (Flovent HFA 110 Aerosol) fluticasone nasal (Flonase 0.05 mg/inh [place]) fluticasone-salmetero l (fluticasone-salmeter ol 115 mcg-21 mcg Inh Aer w/adapter) phentermine (phentermine 37.5 mg Tab) Procedures Performed Bilateral carpal tunnel syndrome, History of elbow surgery, Surgery. Discharge Vitals Heart Rate (Peripheral) 60 Respiratory Rate 18 Blood Pressure 138/90 Height 174 cm Height 69 in Weight 101.8 kg Weight 223.96 lb BMI 33.62 What to do next Scheduled Follow-Up Appointments Saturday 1:00 PM EDT With: Ana M Bay Where: [facility] Ambulatory Visit Summary JEFFREY CHIANG :1975 Visit Date:05/01/2023 Ambulatory Visit Instructions Your Diagnosis Encounter for weight management Excessive dietary caloric intake Asthma BMI 33.0-33.9,adult Smoker Your Care Team Attending Physician - Ana M Bay Primary Care Physician - Ana M Bay This Is Your Medications List albuterol (Albuterol (Eqv-ProAir HFA) 90 mcg/inh inhalation aerosol) albuterol (albuterol 0.083% Inh Beth 3 mL) bisoprolol-hydrochlor othiazide (bisoprolol-hydrochlo rothiazide 5 mg-6.25 mg Tab) fluticasone (Flovent HFA 110 Aerosol) fluticasone nasal (Flonase 0.05 mg/inh [place]) fluticasone-salmetero l (fluticasone-salmeter ol 115 mcg-21 mcg Inh Aer w/adapter) phentermine (phentermine 37.5 mg Tab) Procedures Performed Bilateral carpal tunnel syndrome, History of elbow surgery, Surgery. Discharge Vitals Heart Rate (Peripheral) 60 Respiratory Rate 18 Blood Pressure 138/90 Height 174 cm Height 69 in Weight 101.8 kg Weight 223.96 lb BMI 33.62 What to do next Scheduled Follow-Up Appointments Saturday 1:00 PM EDT With: Ana M Bay Where: [facility] Family Medicine Office/Clini c Noteon 05-01-2023 Family Medicine Office/Clinic Note Chief Complaint 1 month follow up weight loss HPI Staff Jeffrey is a 47 year old male presenting for 1 month weight check Weight management, pt is taking Phentermine (2nd month) Sleeping well:Yes, 6-8 hours Chest pain:No Tremors:No Headaches:No Heart fluttering:No Blurred Vision:No Previous weight 04/01/23: 105.7kg/232.54 Current weight:101.8 kg/ Questions/Concerns: Would like to discuss inhaler. History of Present Illness weight managment Review of Systems PHQ Score Initial Depression Screen Score: 0 ROS - Provider Constitutional: no fever, no chills, no sweats, no fatigue Respiratory: no shortness of breath, no cough, no orthopnea, no wheezing. Cardiovascular: no chest pain, no palpitations, no edema. Neurologic: no headache, no dizziness, no numbness, no weakness. Physical Exam Vitals & Measurements HR: 60(Peripheral) RR: 18 BP: 138/90 SpO2: 98% HT: 69 in HT: 174 cm WT: 101.8 kg WT: 223.96 lb BMI: 33.62 General: alert, no acute distress ENMT: oral mucosa moist, no pharyngeal erythema or exudate Cardiovascular: regular rate and rhythm, normal peripheral perfusion Respiratory: Lungs CTA, respirations non labored Extremities: no deformity, no trauma Neurological: oriented x 4, LOC appropriate for age, CN II-XII intact, motor strength equal & normal bilaterally, speech normal Assessment/Plan 1. Encounter for weight management (Z76.89: Persons encountering health services in other specified circumstances) pt presents today for weight check. will refill adipex for 3rd month. pt is doing very well. has lost a total of 18 pounds. will send last rx. discussed metformin and injectables. RTC 4 weeks 2. Excessive dietary caloric intake (R63.2: Polyphagia) see above Ordered: phentermine, 37.5 mg = 1 tab(s), Oral, Daily, X 30 day(s), # 30 tab(s), Refills(s) 0, Pharmacy: [facility] #[id number], 176, cm, 04/01/23 9:06:00 EDT, Height/Length Dosing, 105.7, kg, 04/01/23 9:06:00 EDT, Weight Dosing 3. Asthma (J45.909: Unspecified asthma, uncomplicated) inhalers refilled. pt states flovent was not covered with insurance Ordered: albuterol, 2 puff(s), Inhalation, q6hr, 8.5 gm, Refill(s) 2, [facility] #[id number], 174, cm, 05/01/23 12:56:00 EDT, Height/Length Dosing, 101.8, kg, 05/01/23 12:56:00 EDT, Weight Dosing albuterol, 2 puff(s), Inhalation, q6hr, 8.5 gm, Refill(s) 2, [facility] #[id number], 176, cm, 04/01/23 9:06:00 EDT, Height/Length Dosing, 105.7, kg, 04/01/23 9:06:00 EDT, Weight Dosing fluticasone-salmetero l, 2 puff(s), Inhalation, BID, 1 EA, Refill(s) 6, [facility] #[id number], 174, cm, 05/01/23 12:56:00 EDT, Height/Length Dosing, 101.8, kg, 05/01/23 12:56:00 EDT, Weight Dosing 4. BMI 33.0-33.9,adult (Z68.33: Body mass index [BMI] 33.0-33.9, adult) BMI education complete Ordered: fluticasone-salmetero l, 2 puff(s), Inhalation, BID, 1 EA, Refill(s) 6, [facility] #[id number], 174, cm, 05/01/23 12:56:00 EDT, Height/Length Dosing, 101.8, kg, 05/01/23 12:56:00 EDT, Weight Dosing 5. Smoker (F17.200: Nicotine dependence, unspecified, uncomplicated) consider not smoking Ordered: fluticasone-salmetero l, 2 puff(s), Inhalation, BID, 1 EA, Refill(s) 6, [facility] #[id number], 174, cm, 05/01/23 12:56:00 EDT, Height/Length Dosing, 101.8, kg, 05/01/23 12:56:00 EDT, Weight Dosing Orders: phentermine, 37.5 mg = 1 tab(s), Oral, Daily, # 30 tab(s), Refills(s) 0, Pharmacy: [facility] #[id number], 174, cm, 05/01/23 12:56:00 EDT, Height/Length Dosing, 101.8, kg, 05/01/23 12:56:00 EDT, Weight Dosing Follow-up No qualifying data available Problem List/Past Medical History Ongoing Asthma Atrophy of muscle BMI 35.0-35.9,adult Cellulitis and abscess of leg Encounter for weight management Excessive dietary caloric intake GERD (gastroesophageal reflux disease) Hypertension Reflex sympathetic dystrophy of lower limb Smoker Historical No qualifying data Procedure/Surgical History Bilateral carpal tunnel syndrome, History of elbow surgery, Surgery. Medications Albuterol (Eqv-ProAir HFA) 90 mcg/inh inhalation aerosol, 2 puff(s), Inhalation, q6hr, 2 refills albuterol 0.083% Inh Beth 3 mL, 2.5 mg= 3 mL, NEB, q4hr, 1 refills bisoprolol-hydrochlor othiazide 5 mg-6.25 mg Tab, 1 tab(s), Oral, Daily, 3 refills Flonase 0.05 mg/inh [place], 2 spray(s), Nasal, Daily Flovent HFA 110 Aerosol, 2 puff(s), Inhalation, BID, 2 refills fluticasone-salmetero l 115 mcg-21 mcg Inh Aer w/adapter, 2 puff(s), Inhalation, BID, 6 refills phentermine 37.5 mg Tab, 37.5 mg= 1 tab(s), Oral, Daily Allergies No Known Medication Allergies Social History Alcohol Current, Beer, Daily, 02/13/2023 Substance Abuse - Denies Substance Abuse, 02/13/2023 Tobacco 10 or more cigarettes (1/2 pack or more)/day in last 30 days Tobacco Use:. Never Smokeless Tobacco Use:. Cigarettes, Ready to change: No. Household tobacco concerns: No. Yes, 05/01/2023 Family History Hypertension: Mother and Father. Immunizations (more content not included)... Normal [facility] Comment on above: Result Comment: Elec tronically Signed By: Ana M Bay\.br\Date and Time Signed: 05/01/23 13:23 EDT Ambulatory Visit Summaryon 0 04-01-2023 Ambulatory Visit Summary JEFFREY CHIANG :1975 Visit Date:04/01/2023 Ambulatory Visit Instructions Your Diagnosis Encounter for weight management Adult BMI 34.0-34.9 kg/sq m Obesity due to excess calories BMI 35.0-35.9,adult Excessive dietary caloric intake Weight gain Well adult exam Your Care Team Attending Physician - Ana M Bay Primary Care Physician - Ana M Bay This Is Your Medications List albuterol (Albuterol (Eqv-ProAir HFA) 90 mcg/inh inhalation aerosol) albuterol (albuterol 0.083% Inh Beth 3 mL) bisoprolol-hydrochlor othiazide (bisoprolol-hydrochlo rothiazide 5 mg-6.25 mg Tab) fluticasone (Flovent HFA 110 Aerosol) fluticasone nasal (Flonase 0.05 mg/inh [place]) phentermine (phentermine 37.5 mg Tab) Procedures Performed Bilateral carpal tunnel syndrome, History of elbow surgery, Surgery. Discharge Vitals Heart Rate (Peripheral) 76 Blood Pressure 144/98 Height 176 cm Height 69 in Weight 105.7 kg Weight 232.54 lb BMI 34.12 What to do next Scheduled Follow-Up Appointments Saturday 1:00 PM EDT With: Ana M Bay Where: [facility] Medicine Office/Clini c Noteon 04-01-2023 Family Medicine Office/Clinic Note Chief Complaint patient here for weight and blood pressure check HPI Staff Jeffrey Chiang is a 47 year old male presenting today for 1 month weight check Weight management Sleeping well:Yes, 6-8 hours Chest pain:No Tremors:No Headaches:No Heart fluttering:No Blurred Vision:No Patient is here for follow up on hypertension. How often are you checking your blood pressure? _ What are your average readings? _ Are you compliant with your diet? yes Do you exercise? yes Are you compliant with your medications?yes Difficulty affording your medications? no Do you have side effects from the medication? None Do you have any of the following symptoms? Chest Pain? no Palpitations? no WALTERS/SOB? no Headache? no Peripheral Edema? no Light Headedness? no Questions/concerns: History of Present Illness pt presents today for weight management. total weight loss 8 pounds so far Review of Systems PHQ Score Initial Depression Screen Score: 0 ROS - Provider Constitutional: no fever, no chills, no sweats, no fatigue Respiratory: no shortness of breath, no cough, no orthopnea, no wheezing. Cardiovascular: no chest pain, no palpitations, no edema. Neurologic: no headache, no dizziness, no numbness, no weakness. Physical Exam Vitals & Measurements HR: 76(Peripheral) BP: 144/98 SpO2: 97% HT: 69 in HT: 176 cm WT: 105.7 kg WT: 232.54 lb BMI: 34.12 General: alert, no acute distress ENMT: oral mucosa moist, no pharyngeal erythema or exudate Cardiovascular: regular rate and rhythm, normal peripheral perfusion Respiratory: Lungs CTA, respirations non labored Extremities: no deformity, no trauma Neurological: oriented x 4, LOC appropriate for age, CN II-XII intact, motor strength equal & normal bilaterally, speech normal Assessment/Plan 1. Encounter for weight management (Z76.89: Persons encountering health services in other specified circumstances) pt presents today for weight management. was started on adipex 4 weeks ago. total weight loss 8 pounds. pt admits that food choices are still not the best. and when he is bored he will eat. discussed keeping a food log with calorie count. pt to increase waster intake and decrease beer intake. and will add some extra activity 3 days/week 2. Excessive dietary caloric intake (R63.2: Polyphagia) pt to start keeping track of calorie intake. refill sent Ordered: phentermine, 37.5 mg = 1 tab(s), Oral, Daily, # 30 tab(s), Refills(s) 0, Pharmacy: [facility] #[id number], 176, cm, 03/04/23 8:31:00 EDT, Height/Length Dosing, 109.2, kg, 03/04/23 8:31:00 EDT, Weight Dosing phentermine, 37.5 mg = 1 tab(s), Oral, Daily, X 30 day(s), # 30 tab(s), Refills(s) 0, Pharmacy: [facility] #[id number], 176, cm, 04/01/23 9:06:00 EDT, Height/Length Dosing, 105.7, kg, 04/01/23 9:06:00 EDT, Weight Dosing 3. Weight gain (R63.5: Abnormal weight gain) see above Ordered: phentermine, 37.5 mg = 1 tab(s), Oral, Daily, # 30 tab(s), Refills(s) 0, Pharmacy: [facility] #[id number], 176, cm, 03/04/23 8:31:00 EDT, Height/Length Dosing, 109.2, kg, 03/04/23 8:31:00 EDT, Weight Dosing phentermine, 37.5 mg = 1 tab(s), Oral, Daily, X 30 day(s), # 30 tab(s), Refills(s) 0, Pharmacy: [facility] #[id number], 176, cm, 04/01/23 9:06:00 EDT, Height/Length Dosing, 105.7, kg, 04/01/23 9:06:00 EDT, Weight Dosing 4. Obesity due to excess calories (E66.09: Other obesity due to excess calories) see above 5. Adult BMI 34.0-34.9 kg/sq m (Z68.34: Body mass index [BMI] 34.0-34.9, adult) BMI education complete Follow-up No qualifying data available Problem List/Past Medical History Ongoing Asthma Atrophy of muscle BMI 35.0-35.9,adult Cellulitis and abscess of leg GERD (gastroesophageal reflux disease) Hypertension Reflex sympathetic dystrophy of lower limb Smoker Historical No qualifying data Procedure/Surgical History Bilateral carpal tunnel syndrome, History of elbow surgery, Surgery. Medications Albuterol (Eqv-ProAir HFA) 90 mcg/inh inhalation aerosol, 2 puff(s), Inhalation, q6hr, 2 refills albuterol 0.083% Inh Beth 3 mL, 2.5 mg= 3 mL, NEB, q4hr, 1 refills bisoprolol-hydrochlor othiazide 5 mg-6.25 mg Tab, 1 tab(s), Oral, Daily, 3 refills Flonase 0.05 mg/inh [place], 2 spray(s), Nasal, Daily Flovent HFA 110 Aerosol, 2 puff(s), Inhalation, BID, 2 refills phentermine 37.5 mg Tab, 37.5 mg= 1 tab(s), Oral, Daily Allergies No Known Medication Allergies Social History Alcohol Current, Beer, Daily, 02/13/2023 Substance Abuse - Denies Substance Abuse, 02/13/2023 Tobacco 10 or more cigarettes (1/2 pack or more)/day in last 30 days Tobacco Use:. Never Smokeless Tobacco Use:. Cigarettes, Ready to change: No. Household tobacco concerns: No. Yes, 04/01/2023 Family History Hypertension: Mother and Father. Immunizations Vaccine Date Status Comments SARS-CoV-2 (COVID-19) mRNA BNT-162b2 vax 10/24/2021 Recorded SARS-CoV-2 (COVID-19) Ad26 vaccine 03/17/2021 Recorded 2023-02-12: TPV40 Normal [facility] Comment on above: Result Comment: Elec tronically Signed By: Ana M Bay\.br\Date and Time Signed: 04/01/23 12:57 EDT Ambulatory Visit Summaryon 0 03-04-2023 Ambulatory Visit Summary JEFFREY CHIANG :1975 Visit Date:03/04/2023 Ambulatory Visit Instructions Your Diagnosis Well adult exam Prostate cancer screening Colon cancer screening Excessive dietary caloric intake Weight gain BMI 35.0-35.9,adult Smoker Your Care Team Attending Physician - Ana M Bay Primary Care Physician - Ana M Bay This Is Your Medications List albuterol (Albuterol (Eqv-ProAir HFA) 90 mcg/inh inhalation aerosol) albuterol (albuterol 0.083% Inh Beth 3 mL) bisoprolol-hydrochlor othiazide (bisoprolol-hydrochlo rothiazide 5 mg-6.25 mg Tab) fluticasone (Flovent HFA 110 Aerosol) fluticasone nasal (Flonase 0.05 mg/inh [place]) phentermine (phentermine 37.5 mg Tab) Procedures Performed Bilateral carpal tunnel syndrome, History of elbow surgery, Surgery. Discharge Vitals Heart Rate (Peripheral) 70 Blood Pressure 120/80 Height 176 cm Height 69 in Weight 109.2 kg Weight 240.24 lb BMI 35.25 What to do next Scheduled Follow-Up Appointments Saturday 8:40 AM EDT With: Ana M Bay Where: [facility] Jerry Normal [facility] Auto Diffon 03-04-2023 Basophils/100 WBC (Bld) 0.7 % Normal 0.0-2.0 [facility] Comment on above: Order Comment: Order Added by Discern Expert. Performed By: #### 1 [id number], 7373363, 30347062, 3719593, 7066313, 9229031, 0885514 ####[address] [address] Basophils/Leukocytes Auto (Bld) [Pure # fraction] 0.1 E9/L Normal 0.0-0.2 [facility] Comment on above: Order Comment: Order Added by Discern Expert. Performed By: #### 1 9575241, 9895093, 22502955, 9940774, 5817287, 6001216, 3874302 ####[address] [address] Eosinophils/100 WBC (Bld) 6.3 % Normal 0.0-8.0 [facility] Comment on above: Order Comment: Order Added by Discern Expert. Performed By: #### 1 1496715, 9976793, 41234450, 4166186, 8154487, 4403788, 3371810 ####[address] [address] Eosinophils/Leukocyte s Auto (Bld) [Pure # fraction] 0.7 E9/L High 0.0-0.5 [facility] Comment on above: Order Comment: Order Added by Yoshi Expert. Performed By: #### 1 2098121, 9936434, 59204513, 7006353, 2002658, 9179023, 9619552 ####[address] [address] Lymphocytes/100 WBC (Bld) 32.7 % Normal 14.0-50.0 [facility] Comment on above: Order Comment: Order Added by Discern Expert. Performed By: #### 1 1859719, 2101557, 68033876, 4431378, 6614492, 5384168, 4444273 ####[address] [address] Lymphocytes/Leukocyte s Auto (Bld) [Pure # fraction] 3.7 E9/L Normal 1.0-4.0 [facility] Comment on above: Order Comment: Order Added by Yoshi Expert. Performed By: #### 1 3622356, 9897147, 45531223, 0289162, 7641507, 4904452, 1820935 ####[address] [place] [address] Monocytes/100 WBC (Bld) 7.3 % Normal 4.0-14.0 [facility] Comment on above: Order Comment: Order Added by Discern Expert. Performed By: #### 1 3666568, 4523082, 88125430, 7430356, 5987688, 9086055, 9143513 ####[address] [address] Monocytes/Leukocytes Auto (Bld) [Pure # fraction] 0.8 E9/L Normal 0.2-1.0 [facility] Comment on above: Order Comment: Order Added by Discern Expert. Performed By: #### 1 0214646, 0698858, 94845970, 8588832, 7173514, 9086746, 5413088 ####[address] [address] Neutrophils/100 WBC (Bld) 53.0 % Normal 36.0-75.0 [facility] Comment on above: Order Comment: Order Added by Discern Expert. Performed By: #### 1 1485468, 9371570, 96143801, 0725676, 9485539, 2246055, 5861906 ####[address] [address] Neutrophils/Leukocyte s Auto (Bld) [Pure # fraction] 6.0 E9/L Normal 2.0-7.5 [facility] Comment on above: Order Comment: Order Added by Discern Expert. Performed By: #### 1 6732007, 6215236, 34523331, 8691361, 5504960, 5425695, 4750658 ####[address] [address] CBC w/ Auto Diffon 3 Erythrocyte distribution width (RBC) [Ratio] 14.5 % High 10.9-14.2 [facility] Comment on above: Performed By: #### 1 7408892, 5441439, 38184212, 3844173, 1075719, 1695206, 1799732 ####[facility] [address] [place] [address] Hematocrit (Bld) [Volume fraction] 50.3 % High 37.7-49.0 [facility] Comment on above: Performed By: #### 1 4274047, 5560343, 20173643, 4338866, 6953282, 2820946, 8862243 ####[facility] [address] [place] [address] Hemoglobin (Bld) [Mass/Vol] 16.0 g/dL Normal 13.5-17.5 [facility] Comment on above: Performed By: #### 1 6190838, 2765953, 56667093, 9107662, 9408134, 3732987, 8626231 ####[address] [address] MCH (RBC) [Entitic mass] 28.1 pg Normal 27.0-34.0 [facility] Comment on above: Performed By: #### 1 7985009, 5539148, 06710939, 5423928, 7934495, 3794062, 7129186 ####[address] [address] MCHC (RBC) [Mass/Vol] 31.7 g/dL Normal 31.4-36.0 [facility] Comment on above: Performed By: #### 1 7465362, 2687954, 98370370, 8474031, 8736294, 9358066, 1091053 ####[address] [address] MCV (RBC) [Entitic vol] 88.5 fL Normal 80.0-100.0 [facility] Comment on above: Performed By: #### 1 1448406, 4372181, 09682934, 3991292, 7370278, 8114746, 9046205 ####[facility] [address] [place] [address] Platelet mean volume (Bld) [Entitic vol] 9.3 fL Normal 6.4-10.8 [facility] Comment on above: Performed By: #### 1 8554631, 6900967, 15706338, 4311453, 0985465, 2567294, 7778285 ####[facility] [address] [place] [address] Platelets (Bld) [#/Vol] 270.0 E9/L Normal 150.0-500.0 [facility] Comment on above: Performed By: #### 1 8899734, 1333480, 93944196, 2004061, 0078147, 1528194, 9054087 ####[facility] [address] [place] [address] RBC (Bld) [#/Vol] 5.7 E12/L Normal 4.3-5.9 [facility] Comment on above: Performed By: #### 1 5565820, 0748026, 32628902, 5113679, 6761019, 2415789, 7044130 ####[facility] [address] [place] [address] WBC corrected for nucl RBC Auto (Bld) [#/Vol] 11.4 E9/L High 4.0-11.0 [facility] Comment on above: Performed By: #### 1 7772093, 2679889, 10964823, 3206118, 6593609, 7711436, 0140875 ####[facility] [address] [place] [address] CHEMISTRYOrdered By: SYSTEM SYSTEM on 03-04-2023 Albumin [Mass/Vol] 4.3 g/dL Normal 3.3 - 5.0 gm/dL [facility] Albumin/Globulin [Mass ratio] 1.4 {ratio} Normal 1.1 - 2.2 [facility] ALP [Catalytic activity/Vol] 54 [iU]/d Normal 21 - 98 Int._Unit/L [facility] ALT No additional P-5'-P [Catalytic activity/Vol] 31 [iU]/d Normal 6 - 46 Int._Unit/L [facility] Anion gap [Moles/Vol] 12 mmol/L Normal 6 - 16 mEq/L [facility] AST [Catalytic activity/Vol] 26 [iU]/d Normal 5 - 43 Int._Unit/L [facility] Bilirubin [Mass/Vol] 0.6 mg/dL Normal 0.0 - 1 .1 mg/dL [facility] Calcium [Mass/Vol] 9.3 mg/dL Normal 8.9 - 11. 1 mg/dL [facility] Chloride [Moles/Vol] 103 mmol/L Normal 101 - 1 11 mmol/L [facility] Cholesterol [Mass/Vol] 289 mg/dL High 120 - 200 mg/dL [facility] Cholesterol in HDL [Mass/Vol] 50 mg/dL Invalid Interpretation Code [facility] Cholesterol in LDL [Mass/Vol] 168 mg/dL High <=129mg/dL [facility] Cholesterol in VLDL [Mass/Vol] 48 mg/dL High 7 - 40 mg/dL [facility] CO2 [Moles/Vol] 25 mmol/L Normal 21 - 31 mmol/L [facility] Creatinine [Mass/Vol] 1.1 mg/dL Normal 0.5 - 1.3 mg/dL [facility] GFR/1.73 sq M.predicted among non-blacks MDRD (S/P/Bld) [Vol rate/Area] 84 mL/min/1.73 m2 Normal >=59mL/min/1 .73 m2 FT Chem S Globulin (S) [Mass/Vol] 3.1 g/dL Normal 1.4 - 4.0 gm/dL [facility] Glucose [Mass/Vol] 97 mg/dL Normal 55 - 199 mg/dL [facility] Potassium [Moles/Vol] 4.3 mmol/L Normal 3.5 - 5.3 mmol/L [facility] Prostate specific Ag [Mass/Vol] 0.7 ng/mL Normal 0.1 - 3.5 ng/mL [facility] Protein [Mass/Vol] 7.4 g/dL Normal 6.0 - 7.8 gm/dL [facility] Sodium [Moles/Vol] 136 mmol/L Normal 135 - 145 mmol/L [facility] Triglyceride [Mass/Vol] 241 mg/dL High <=149mg/dL [facility] TSH Qn 1.61 m[IU]/L Normal 0.34 - 5.60 mcIU/mL [facility] Remisol Urea nitrogen [Mass/Vol] 19 mg/dL Normal 5 - 21 mg/dL [facility] Remisol Urea nitrogen/Creatinine [Mass ratio] 17 mg/mg Normal 10 - 20 [facility] Remisol CMPon 03-04-2023 Albumin [Mass/Vol] 4.3 g/dL Normal 3.3-5.0 [facility] Comment on above: Performed By: #### 1 9812890, 7678443, 97392320, 8021740, 1494152, 7965233, 3342844 ####[facility] [address] [place] [address] Albumin/Globulin (S) [Mass conc ratio] 1.4 Normal 1.1-2.2 [facility] Comment on above: Performed By: #### 1 5083373, 8494324, 83793153, 0541284, 8976573, 2624972, 7285593 ####[facility] [address] [place] [address] ALP [Catalytic activity/Vol] 54 Int._Unit/L Normal 21-98 [facility] Comment on above: Performed By: #### 1 3171463, 0862852, 71887499, 8224907, 2949413, 1492617, 7465770 ####[facility] [address] [place] [address] ALT No additional P-5'-P [Catalytic activity/Vol] 31 Int._Unit/L Normal 6-46 [facility] Comment on above: Performed By: #### 1 3705589, 8401214, 96529187, 7580193, 2716411, 2431176, 8339770 ####[facility] [address] [place] [address] Anion gap [Moles/Vol] 12 mmol/L Normal 6-16 [facility] Comment on above: Performed By: #### 1 8732901, 8745559, 06863021, 0189554, 0133734, 6283629, 9916224 ####[facility] [address] [place] [address] AST [Catalytic activity/Vol] 26 Int._Unit/L Normal 5-43 [facility] Comment on above: Performed By: #### 1 3734620, 2073887, 99874663, 0702795, 2180989, 4307363, 2007679 ####[facility] [address] [place] [address] Bilirubin [Mass/Vol] 0.6 mg/dL Normal 0.0-1.1 [facility] Comment on above: Performed By: #### 1 3618080, 3846743, 32927621, 2112526, 8070148, 0573292, 3882501 ####[facility] [address] [place] [address] Calcium [Mass/Vol] 9.3 mg/dL Normal 8.9-11.1 [facility] Comment on above: Performed By: #### 1 9355366, 1604333, 97446529, 0101153, 2994946, 3044654, 7606802 ####[facility] [address] [place] [address] Chloride [Moles/Vol] 103 mmol/L Normal 101-111 [facility] Comment on above: Performed By: #### 1 9900896, 4787268, 26878793, 3811223, 9710854, 3087225, 3303811 ####[facility] [address] [place] [address] CO2 [Moles/Vol] 25 mmol/L Normal 21-31 [facility] Comment on above: Performed By: #### 1 5670465, 0786355, 02842475, 9777709, 4435061, 5580588, 9018087 ####[facility] [address] [place] [address] Creatinine [Mass/Vol] 1.1 mg/dL Normal 0.5-1.3 [facility] Comment on above: Performed By: #### 1 9175628, 3445631, 82212979, 8013341, 5241591, 2124031, 8934725 ####[facility] [address] [place] [address] Globulin (S) [Mass/Vol] 3.1 g/dL Normal 1.4-4.0 [facility] Comment on above: Performed By: #### 1 6520699, 4944505, 96204082, 0808697, 8599712, 6186968, 0785611 ####[facility] [address] [place] [address] Glucose [Mass/Vol] 97 mg/dL Normal 55-199 [facility] Comment on above: Result Comment: If t his glucose result represents a fasting glucose, interpretation should refer to the following reference range: 55-99 mg/dL Performed By: #### 1 0436696, 7936130, 42623910, 9735995, 0260689, 0621500, 1072828 ####[facility] [address] [place] [address] Potassium [Moles/Vol] 4.3 mmol/L Normal 3.5-5.3 [facility] Comment on above: Performed By: #### 1 1705394, 6424400, 73283508, 9990211, 6449185, 9603824, 7750050 ####[facility] [address] [place] [address] Protein [Mass/Vol] 7.4 g/dL Normal 6.0-7.8 [facility] Comment on above: Performed By: #### 1 2050772, 6215784, 80609325, 7082192, 9417827, 4099017, 8344382 ####[facility] [address] [place] [address] Sodium [Moles/Vol] 136 mmol/L Normal 135-145 [facility] Comment on above: Performed By: #### 1 5730068, 3377301, 74139277, 9314449, 9584609, 6261067, 9486720 ####[facility] [address] [place] [address] Urea nitrogen [Mass/Vol] 19 mg/dL Normal 5-21 [facility] Comment on above: Performed By: #### 1 6371513, 0417544, 31706987, 9612539, 0587532, 5904152, 2883152 ####[facility] [address] [place] [address] Urea nitrogen/Creatinine [Mass ratio] 17 No Units Normal 10-20 [facility] Comment on above: Performed By: #### 1 0113486, 5975060, 75149705, 0052280, 7656207, 6616330, 9352374 ####[facility] [address] [place] [address] Family Medicine Office/Clini c Noteon 03-04-2023 Family Medicine Office/Clinic Note Chief Complaint bp check up HPI Staff follow up BP and needs labs Patient is here for follow up on hypertension. How often are you checking your blood pressure? Doesnt check BP at home What are your average readings? N/A, Not checking at home Are you compliant with your diet? no Do you exercise? no Do you have any of the following symptoms? Chest Pain? no Palpitations? no WALTERS/SOB? no Headache? no Peripheral Edema? no Light Headedness? no Health Maintenance UTD: Colonoscopy: covid: UTD questions/concerns: History of Present Illness pt presents today to follow up on BP he had been out of meds prior to last appointment. pt also needs labs drawn today. Review of Systems PHQ Score Initial Depression Screen Score: 0 ROS - Provider Constitutional: no fever, no chills, no sweats, no weakness. Skin: no Jaundice, no rash, no lesions, no petechiae. ENMT: no ear pain, no sore throat, no congestion, no hoarseness,no swelling of lymph nodes Respiratory: no shortness of breath, no cough, no orthopnea, no wheezing. Cardiovascular: no chest pain, no palpitations, no edema. Gastrointestinal: no nausea, no vomiting, no diarrhea, no GI bleeding. Genitourinary: no dysuria, no hematuria, no discharge, no pain. Musculoskeletal: no back pain, no trauma. Neurologic: no headache, no dizziness, no numbness, no weakness. Psychiatric: noDepressionno Anxietyno sleeping problems, no Suicidal thoughts or ideationsno mood swings Additional ROS info: Except as noted in the above Review of Systems and in the History of Present Illness all other systems have been reviewed and are negative or noncontributory. Physical Exam Vitals & Measurements HR: 70(Peripheral) BP: 120/80 SpO2: 96% HT: 69 in HT: 176 cm WT: 109.2 kg WT: 240.24 lb BMI: 35.25 General: alert, no acute distress Skin: warm, dry Head: no trauma, normocephalic Neck: Trachea midline, thyroid not enlarged Eye: normal conjunctiva, sclera clear ENMT: oral mucosa moist, yes Cardiovascular: regular rate and rhythm, normal Respiratory: respirations non labored Chest wall: no deformity. Gastrointestinal: soft, non distended, no tenderness Back: No tenderness Extremities: no edema, no wound Neurological: awake, alert, oriented, speech normal Psychiatric: cooperative, affect appropriate for age Assessment/Plan 1. Well adult exam (Z00.00: Encounter for general adult medical examination without abnormal findings) pt presents today for annual wellness exam. Pt denies complaints at this time. BP is much improved since last visit. will draw labs in office today. all question answered. RTC 4 weeks for weight and BP check Ordered: phentermine, 37.5 mg = 1 tab(s), Oral, Daily, # 30 tab(s), Refills(s) 0, Pharmacy: [facility] #[id number], 176, cm, 03/04/23 8:31:00 EDT, Height/Length Dosing, 109.2, kg, 03/04/23 8:31:00 EDT, Weight Dosing CBC w/ Auto Diff Cologuard Screening Test Comprehensive Metabolic Panel Lab Specimen Collect [id number] Lipid Panel PSA Screen, Total Thyroid Stimulating Hormone 2. Prostate cancer screening (Z12.5: Encounter for screening for malignant neoplasm of prostate) PSA drawn in office today Ordered: Lab Specimen Collect [id number] PSA Screen, Total 3. Colon cancer screening (Z12.11: Encounter for screening for malignant neoplasm of colon) cologuard ordered Ordered: Cologuard Screening Test Lab Specimen Collect [id number] 4. Excessive dietary caloric intake (R63.2: Polyphagia) adipex ordered Ordered: phentermine, 37.5 mg = 1 tab(s), Oral, Daily, # 30 tab(s), Refills(s) 0, Pharmacy: [facility] #[id number], 176, cm, 03/04/23 8:31:00 EDT, Height/Length Dosing, 109.2, kg, 03/04/23 8:31:00 EDT, Weight Dosing Lab Specimen Collect [id number] 5. Weight gain (R63.5: Abnormal weight gain) adipex ordered. rtc 4 weeks for weight check Ordered: phentermine, 37.5 mg = 1 tab(s), Oral, Daily, # 30 tab(s), Refills(s) 0, Pharmacy: [facility] #[id number], 176,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
== END 2024-01-08 14:14 | disposition home or self-care (01) ==
LOC: RAD 14:14
PROVIDERS: PCP Family Medicine; Visit Provider Nurse Practitioner
DX: M25.511 Pain in right shoulder (principal)
CPT/HCPCS: 73030

== ENCOUNTER 2024-01-23 15:07 | Outpatient (OUT) | payer OTHER, SELFPAY ==
--- NOTE | 2024-01-23 15:13 | MR_ITS ---
[place] [id number] Patient Name: JEFFREY CHIANG JR MRN: [id number] date: 1975 Sex: M Assigned Patient Location: MRI Current Patient Location: Accession/Order Number: [id number] Exam Date: 01/23/2024 15:40 Report Date: 01/24/2024 06:49 At the request of: MONIQUE MONTOYA Procedure: MR shoulder RT wo con EXAMINATION: MR shoulder RT wo con HISTORY: right shoulder pain , weakness; chronic COMPARISON: No relevant comparison available. TECHNIQUE: A variety of imaging planes and parameters were utilized for visualization of suspected pathology. Imaging was performed without or with contrast as indicated by examination type. FINDINGS: ROTATOR CUFF REGION CUFF TENDONS: Marked increased signal intensity in the supraspinatus tendon indicates tendon degeneration and/or tendinitis. No steve tear is seen. CUFF MUSCLES: Normal appearing muscles. DELTOID: Normal. No significant atrophy or tear. LONG BICEPS TENDON: Normal. No abnormal signal, attrition, or tear. LABRUM/BICEPS ANCHOR SUPERIOR: No visible labral tear or biceps anchor pathology. ANTERIOR/INFERIOR: No visible tear or attrition. POSTERIOR: No posterior labrum abnormality. CAPSULE Normal. No visible capsular laxity or thickening. 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 AC LIGAMENTS: Normal acromioclavicular ligament. CC LIGAMENTS: Normal coracoclavicular ligaments. ACROMION: Normal horizontal (Type I) configuration. SUBACROMIAL BURSA: Normal. No significant effusion. HYALINE CARTILAGE: Normal. No visible cartilage narrowing or focal defect. OTHER BONES: Normal proximal humerus, glenoid, and coracoid. OTHER OBSERVATIONS: Negative. No other significant findings or glenohumeral effusion. MR/MR shoulder RT wo con IMPRESSION: 1. Marked strain versus partial tear of the supraspinatus tendon. No full-thickness tear. 2. Moderate marked degenerative changes of acromioclavicular joint impinging upon the superior rotator cuff. Electronically authenticated by: LUCILLE MELISSA Date: 01/24/2024 06:49
--- NOTE | 2024-01-23 15:25 | XR_ITS ---
[address] [address] Patient Name: JEFFREY CHIANG JR MRN: [id number] date: 1975 Sex: M Assigned Patient Location: MRI Current Patient Location: MRI Accession/Order Number: [id number] Exam Date: 01/23/2024 15:28 Report Date: 01/23/2024 15:42 At the request of: MONIQUE MONTOYA Procedure: XR foreign body eye EXAMINATION: XR foreign body eye HISTORY: pre mri COMPARISON: No relevant comparison available. FINDINGS: ORBITS: Negative for a metallic foreign body. OTHER: Negative. XR/XR foreign body eye IMPRESSION: No metallic foreign body in the orbits Electronically authenticated by: GIULIANO AN Date: 01/23/2024 15:42
--- OUTSIDE RECORDS SUMMARY | 2024-01-23 17:12 | XMS_ITS | CCD ---
Author Organization [facility] Care Team Providers Care Coagulating Bath Mixer Name Role Phone REAL, DR DANIAL Mcclellan Consulting Unavailabl e BAUGH, DR TAMEKA Manriquez Primary Care Unavailable VARUNECK, DR DANIAL Mcclellan Attending Unavailabl e REINECK, DR DANIAL Mcclellan Admitting Unavailabl e FilipponeTabitha Consulting Unavailable Ismael, Ana M Tafoya Primary Care Physician Ismael, Ana M Tafoya Attending Unavailable Ismael, [...] Unavailable Ismael, Ana M Tafoya Attending Unavailable Allergies Allergy Classification Reported Allergen(s) Allergy Type Date of Onset Reaction(s) Facility (1 source) No Known Medication Allergies; Translations: [No Known Medication Allergies] Propensity to adverse reactions (disorder) [facility] Repository Medications Current Medications Medication Drug Class(es) Dates Sig (Normalized) Sig (Original) albuterol 0.83 mg/ml inhalation solution (1 source) beta2-Adrenergic Agonist Start: 02-13-2023 take 2.5 mg by inhalation every four hours as needed albuterol 0.083% Inh Beth 3 mL 2.5 mg, 3 mL, NEB, q4hr, 100 EA, Refill(s) 1, as needed, [facility] #[id number], 176, cm, 02/13/23 9:01:00 EDT, Height/Length Dosing, 108.4, kg, 02/13/23 9:01:00 EDT, Weight Dosing Start Date: 02/13/23 Status: Ordered Albuterol (Eqv-ProAir HFA) 90 mcg/inh inhalation aerosol (1 source) Start: 02-13-2023 take 2 puff(s) by inhalation every six hours Albuterol (Eqv-ProAir HFA) 90 mcg/inh inhalation aerosol 2 puff(s), Inhalation, q6hr, 8.5 gm, Refill(s) 2, [facility] #[id number], 176, cm, 02/13/23 9:01:00 EDT, Height/Length Dosing, 108.4, kg, 02/13/23 9:01:00 EDT, Weight Dosing Start Date: 02/13/23 Status: Ordered bisoprolol fumarate 5 mg / hydroCHLOROthiazide 6.25 mg oral tablet (1 source) Thiazide Diuretic, beta-Adrenergic Elan Start: 02-13-2023 take 1 tablet by mouth once daily bisoprolol-hydr ochlorothiazide 5 mg-6.25 mg Tab 1 tab(s), Oral, Daily, 90 tab(s), Refill(s) 3, [facility] #[id number], 176, cm, 02/13/23 9:01:00 EDT, Height/Length Dosing, 108.4, kg, 02/13/23 9:01:00 EDT, Weight Dosing Start Date: 02/13/23 Status: Ordered 120 actuat fluticasone propionate 0.11 mg/actuat metered dose inhaler (2 sources) Corticosteroid Start: 02-13-2023 take 2 puff(s) by mouth twice daily Flovent HFA 110 Aerosol = 2 puff(s), Inhalation, BID, rinse mouth and throat after use, # 12 gram, Refills(s) 2, Pharmacy: [facility] #[id number], 176, cm, 02/13/23 9:01:00 EDT, Height/Length Dosing, 108.4, kg, 02/13/23 9:01:00 EDT, Weight Dosing Start Date: 02/13/23 Status: Ordered Start: 02-13-2023 Flonase 0.05 m g/inh [place] 2 spray(s), Nasal, Daily, 16 gram, Refill(s) 0, each nostril, [facility] #[id number], 176, cm, 02/13/23 9:01:00 EDT, Height/Length Dosing, 108.4, kg, 02/13/23 9:01:00 EDT, Weight Dosing Start Date: 02/13/23 Status: Ordered phentermine hydrochloride 37.5 mg oral tablet (1 source) Sympathomimetic Amine Anorectic Start: 03-04-2023 take 1 tablet by mouth once daily phentermine 37.5 mg Tab 37.5 mg = 1 tab(s), Oral, Daily, # 30 tab(s), Refills(s) 0, Pharmacy: [facility] #[id number], 176, cm, 03/04/23 8:31:00 EDT, Height/Length Dosing, [...] 01-08-2022 Episodic Other aftercare (1 source) Other long term care social worker (current) drug therapy; Translations: [OTH PIN OR CLIP FASTENER CURRENT DRUG THERAPY] Onset: 01-08-2022 Episodic Other [...] Range Facility Physician Orderon 01-01-2024 Physician Order [id number] .00TIFF Normal [facility] Ambulatory Visit Summaryon 0 12-31-2023 Ambulatory Visit [...] PM EDT With: Ana M Bay Where: [facility] [place] Normal [facility] Family Medicine Office/Clini c Noteon 12-31-2023 Family Medicine Office/Clinic Note HPI Staff Jeffrey is a 48 year old male presenting for 1 month follow up Weight management: Started Phentermine on 11/04/23 Sleeping well:Yes, 6-8 hours Chest pain:No Tremors:No Headaches:No Heart fluttering:No Blurred Vision:No Beginning weight: 228.8Ibs Previous weight: 227.10Ibs Today's weight: 226 Ibs Questions/Concerns: need refill on albuterol Inhaler to [facility] [place] History of Present Illness pt presents today [...] 3.0mg, # 15 mL, Refills(s) 0, Pharmacy: [facility] #[id number], 174, cm, 12/02/23 14:25:00 EST, Height/Length Dosing, 103... metformin, 500 mg = 1 tab(s), Oral, BID, # 60 tab(s), Refills(s) 3, Pharmacy: [facility] #[id number], 174, cm, 12/02/23 14:25:00 EST, Height/Length Dosing, 103.2, kg, 12/02/23 14:25:00 EST, Weight Dosing metformin, 500 mg = 1 tab(s), Oral, BID, # 60 tab(s), Refills(s) 3, Pharmacy: [facility] #[id number], 174, cm, 12/31/23 14:35:00 EST, Height/Length Dosing, [...] necessary. xray order to be done at [facility] 3. BMI 33.0-33.9,adult (Z68.33: Body mass index [BMI] 33.0-33.9, adult) BMI education complete 4. Smoker (F17.200: Nicotine dependence, unspecified, uncomplicated) consider not smoking Orders: albuterol, 2.5 mg, 3 mL, NEB, q4hr, 100 EA, Refill(s) 1, as needed, [facility] #[id number], 174, cm, 12/31/23 14:35:00 EST, Height/Length Dosing, 102.9, kg, 12/31/23 14:35:00 EST, Weight Dosing albuterol, 2.5 mg, 3 mL, NEB, q4hr, 100 EA, Refill(s) 1, as needed, [facility] #[id number], 176, cm, 02/13/23 9:01:00 EDT, Height/Length Dosing, 108.4, kg, 02/13/23 9:01:00 EDT, Weight Dosing phentermine, 37.5 mg = 1 tab(s), Oral, Daily, # 30 tab(s), Refills(s) 0, Pharmacy: [facility] #[id number], 174, cm, 12/31/23 14:35:00 EST, Height/Length Dosing, 102.9, kg, 12/31/23 14:35:00 EST, Weight Dosing phentermine, 37.5 mg = 1 tab(s), Oral, Daily, # 30 tab(s), Refills(s) 0, Pharmacy: [facility] #[id number], 174, cm, 12/02/23 14:25:00 EST, Height/Length Dosing, [...] SARS-CoV-2 (C (more content not included)... Normal [facility] Comment on above: Result Comment: Elec tronically [...] PM EST With: Ana M Bay Where: [facility] [place] Normal [facility] Family Medicine Office/Clini c Noteon 12-02-2023 Family Medicine [...] # 15 mL, Refills(s) 0, [facility]acy: [facility] #[id number], 174, cm, 12/02/23 14:25:00 EST, Height/Length Dosing, 103... methylPREDNISolone, = 1 packet(s), Oral, As Directed, as directed on package labeling, X 6 day(s), # 21 tab(s), Refills(s) 0, Pharmacy: [facility] #[id number], 174, cm, 12/02/23 14:25:00 EST, Height/Length Dosing, [...] day(s), # 21 tab(s), Refills(s) 0, Pharmacy: [facility] #[id number], 174, cm, 12/02/23 14:25:00 EST, Height/Length Dosing, 103.2, kg, 12/02/23 14:25:00 EST, Weight Dosing 3. BMI 34.0-34.9,adult (Z68.34: Body mass index [BMI] 34.0-34.9, adult) bmi education complete Ordered: methylPREDNISolone, = 1 packet(s), Oral, As Directed, as directed on package labeling, X 6 day(s), # 21 tab(s), Refills(s) 0, [facility] #[id number], 174, cm, 12/02/23 14:25:00 EST, Height/Length Dosing, 103.2, kg, 12/02/23 14:25:00 EST, Weight Dosing 4. Smoker (F17.200: Nicotine dependence, unspecified, uncomplicated) consider not smoking Ordered: methylPREDNISolone, = 1 packet(s), Oral, As Directed, as directed on package labeling, X 6 day(s), # 21 tab(s), Refills(s) 0, Pharmacy: [facility] #[id number], 174, cm, 12/02/23 14:25:00 EST, Height/Length Dosing, [...] Immunizations Vaccine (more content not included)... Normal [facility] Comment on above: Result Comment: Elec tronically [...] PM EST With: Ana M Bay Where: [facility] [place] Normal [facility] Family Medicine Office/Clini c Noteon 11-04-2023 Family [...] BID, # 60 tab(s), Refills(s) 1, Pharmacy: [facility] #[id number], 174, cm, 11/04/23 14:47:00 EST, Height/Length Dosing, 104, kg, 11/04/23 14:47:00 EST, Weight Dosing 2. BMI 34.0-34.9,adult (Z68.34: Body mass index [BMI] 34.0-34.9, adult) BMI education complete Ordered: metformin, 500 mg = 1 tab(s), Oral, BID, # 60 tab(s), Refills(s) 1, Pharmacy: [facility] #[id number], 174, cm, 11/04/23 14:47:00 EST, Height/Length Dosing, 104, kg, 11/04/23 14:47:00 EST, Weight Dosing Orders: phentermine, 37.5 mg = 1 tab(s), Oral, Daily, # 30 tab(s), Refills(s) 0, Pharmacy: [facility] #[id number], 174, cm, 11/04/23 14:47:00 EST, Height/Length Dosing, [...] (COVID-19) Ad26 vaccine 03/17/2021 Recorded 2023-02-12: [id number] [facility] Comment on above: Result Comment: Elec tronically Signed By: Ana M Bay\.br\Date and Time Signed: 11/04/23 15:15 EST Pre-Certification Formon Pre-Certification Form [id number]. [facility] Retail - Clinical Note [id number]#1. 00[facility] Ambulatory Visit Summaryon 1 Ambulatory Visit [...] PM EST With: Ana M Bay Where: [facility] Office/Clini c Noteon 08-21-2023 Family Medicine Office/Clinic Note HPI Staff Jeffrey is a 47 year old male presenting for 1 month follow up Weight management: Started Phentermine on 03/04/23 Sleeping well:Yes, 6-8 hours Chest pain:No Tremors:No Headaches:No Heart fluttering:No Blurred Vision:No Beginning weight: 240.24Ibs/109.2kg Previous weight: 86935Tug/97.97Kg Today's weight: 101.9Kg/224.18ibs Questions/Concerns: pt says he has joined the [facility] but hasn't gone yet and doesn't think [...] not cover it, will send order to [facility]. all questions answered. RTC 4 weeks Ordered: semaglutide, 0.25 mg, SubCutaneous, qWeek, # 1 EA, Refills(s) 0, Pharmacy: [facility] #[id number], 174, cm, 08/21/23 14:21:00 EDT, Height/Length Dosing, 101.9, kg, 08/21/23 14:21:00 EDT, Weight Dosing 2. Encounter for weight management (Z76.89: Persons encountering health services in other specified circumstances) see above Ordered: semaglutide, 0.25 mg, SubCutaneous, qWeek, # 1 EA, Refills(s) 0, [facility] #[id number], 174, cm, 08/21/23 14:21:00 EDT, Height/Length Dosing, 101.9, kg, 08/21/23 14:21:00 EDT, Weight Dosing 3. BMI 33.0-33.9,adult (Z68.33: Body mass index [BMI] 33.0-33.9, adult) BMI education complete Ordered: semaglutide, 0.25 mg, SubCutaneous, qWeek, # 1 EA, Refills(s) 0, Pharmacy: [facility] #[id number], 174, cm, 08/21/23 14:21:00 EDT, Height/Length Dosing, 101.9, kg, 08/21/23 14:21:00 EDT, Weight Dosing 4. Smoker (F17.200: Nicotine dependence, unspecified, uncomplicated) consider not smoking Ordered: semaglutide, 0.25 mg, SubCutaneous, qWeek, # 1 EA, Refills(s) 0, Pharmacy: [facility] #[id number], 174, cm, 08/21/23 14:21:00 EDT, Height/Length Dosing, [...] (COVID-19) Ad26 vaccine 03/17/2021 Recorded 2023-02-12: [id number] [facility] Comment on above: Result Comment: Elec tronically Signed By: Ana M Bay\.br\Date and Time Signed: 08/21/23 15:52 EDT Ambulatory Visit Summaryon 0 07-24-2023 Ambulatory Visit Summary JEFFREY CHIANG :1975 Visit Date:07/24/2023 Ambulatory Visit Instructions Your [...] PM EDT With: Ana M Bay Where: [facility] Medicine [facility] Family Medicine Office/Clini c Noteon 07-24-2023 Family Medicine Office/Clinic Note HPI Staff Jeffrey [...] puff(s), Inhalation, q6hr, 8.5 gm, Refill(s) 2, [facility] #[id number], 174, cm, 05/01/23 12:56:00 EDT, Height/Length Dosing, 101.8, kg, 05/01/23 12:56:00 EDT, Weight Dosing fluticasone nasal, 2 spray(s), Nasal, Daily, 16 gram, Refill(s) 0, each nostril, [facility] #09939, 176, cm, 02/13/23 9:01:00 EDT, Height/Length Dosing, 108.4, kg, 02/13/23 9:01:00 EDT, Weight Dosing fluticasone-salmetero l, 2 puff(s), Inhalation, BID, 1 EA, Refill(s) 6, [facility] #[id number], 174, cm, 05/01/23 12:56:00 EDT, Height/Length Dosing, 101.8, kg, 05/01/23 12:56:00 EDT, Weight Dosing phentermine, 37.5 mg = 1 tab(s), Oral, Daily, X 30 day(s), # 30 tab(s), Refills(s) 0, Pharmacy: [facility] #[id number], 174, cm, 06/26/23 12:58:00 EDT, Height/Length Dosing, 97.4, kg, 06/26/23 12:58:00 EDT, Weight Dosing phentermine, 37.5 mg = 1 tab(s), Oral, Daily, X 30 day(s), # 30 tab(s), Refills(s) 0, Pharmacy: [facility] #[id number], 174, cm, 07/24/23 14:20:00 EDT, Height/Length Dosing, [...] Ad26 vaccine 03/17/2021 Recorded 2023-02-12: [id number] [facility] Comment on above: Result Comment: Elec tronically Signed By: Ana M Bay\.br\Date and Time Signed: 07/24/23 14:34 EDT Ambulatory Visit Summaryon 0 06-26-2023 Ambulatory Visit Summary JEFFREY CHIANG Lottie :1975 Visit Date:06/26/2023 Ambulatory Visit Instructions Your [...] 110 Aerosol) fluticasone nasal (Flonase 0.05 mg/inh [place]) fluticasone-salmetero l (fluticasone-salmeter ol 115 mcg-21 mcg [...] PM EDT With: Ana M Bay Where: [facility] [place] Normal [facility] Office/Clini c Noteon 06-26-2023 [facility] Office/Clinic Note HPI Staff Jeffrey is a [...] day(s), # 30 tab(s), Refills(s) 0, Pharmacy: [facility] #[id number], 174, cm, 06/26/23 12:58:00 EDT, Height/Length Dosing, 97.4, kg, 06/26/23 12:58:00 EDT, Weight Dosing phentermine, 37.5 mg = 1 tab(s), Oral, Daily, # 30 tab(s), Refills(s) 0, Pharmacy: [facility] #[id number], 174, cm, 05/29/23 13:13:00 EDT, Height/Length Dosing, [...] Oral, Daily, 3 refills Flonase 0.05 mg/inh [place], 2 spray(s), Nasal, Daily Flovent HFA 110 [...] (COVID-19) Ad26 vaccine 03/17/2021 Recorded 2023-02-12: [id number] [facility] Comment on above: Result Comment: Elec tronically Signed By: Ana M Bay\.br\Date and Time Signed: 06/26/23 13:09 EDT Ambulatory Visit Summaryon 0 05-29-2023 Ambulatory Visit Summary JEFFREY CHIANG :1975 Visit Date:05/29/2023 Ambulatory Visit Instructions Your [...] 110 Aerosol) fluticasone nasal (Flonase 0.05 mg/inh [place]) fluticasone-salmetero l (fluticasone-salmeter ol 115 mcg-21 mcg [...] PM EDT With: Ana M Bay Where: [facility] Family Medicine Office/Clini c Noteon 05-29-2023 Family [...] Daily, # 30 tab(s), Refills(s) 0, Pharmacy: [facility] #[id number], 174, cm, 05/01/23 12:56:00 EDT, Height/Length Dosing, 101.8, kg, 05/01/23 12:56:00 EDT, Weight Dosing phentermine, 37.5 mg = 1 tab(s), Oral, Daily, # 30 tab(s), Refills(s) 0, Pharmacy: [facility] #[id number], 174, cm, 05/29/23 13:13:00 EDT, Height/Length Dosing, [...] Oral, Daily, 3 refills Flonase 0.05 mg/inh [place], 2 spray(s), Nasal, Daily Flovent HFA 110 [...] (COVID-19) Ad26 vaccine 03/17/2021 Recorded 2023-02-12: [id number] [facility] Comment on above: Result Comment: Elec tronically [...] 110 Aerosol) fluticasone nasal (Flonase 0.05 mg/inh [place]) fluticasone-salmetero l (fluticasone-salmeter ol 115 mcg-21 mcg [...] PM EDT With: Ana M Bay Where: [facility] Ambulatory Visit Summary JEFFREY CHIANG :1975 Visit [...] 110 Aerosol) fluticasone nasal (Flonase 0.05 mg/inh [place]) fluticasone-salmetero l (fluticasone-salmeter ol 115 mcg-21 mcg [...] PM EDT With: Ana M Bay Where: [facility] Office/Clini c Noteon 05-01-2023 Family [...] day(s), # 30 tab(s), Refills(s) 0, Pharmacy: [facility] #[id number], 176, cm, 04/01/23 9:06:00 EDT, Height/Length Dosing, 105.7, kg, 04/01/23 9:06:00 EDT, Weight Dosing 3. Asthma (J45.909: Unspecified asthma, uncomplicated) inhalers refilled. pt states flovent was not covered with insurance Ordered: albuterol, 2 puff(s), Inhalation, q6hr, 8.5 gm, Refill(s) 2, [facility] #[id number], 174, cm, 05/01/23 12:56:00 EDT, Height/Length Dosing, 101.8, kg, 05/01/23 12:56:00 EDT, Weight Dosing albuterol, 2 puff(s), Inhalation, q6hr, 8.5 gm, Refill(s) 2, [facility] #[id number], 176, cm, 04/01/23 9:06:00 EDT, Height/Length Dosing, 105.7, kg, 04/01/23 9:06:00 EDT, Weight Dosing fluticasone-salmetero l, 2 puff(s), Inhalation, BID, 1 EA, Refill(s) 6, [facility] #49977, 174, cm, 05/01/23 12:56:00 EDT, Height/Length Dosing, 101.8, kg, 05/01/23 12:56:00 EDT, Weight Dosing 4. BMI 33.0-33.9,adult (Z68.33: Body mass index [BMI] 33.0-33.9, adult) BMI education complete Ordered: fluticasone-salmetero l, 2 puff(s), Inhalation, BID, 1 EA, Refill(s) 6, [facility] #44530, 174, cm, 05/01/23 12:56:00 EDT, Height/Length Dosing, 101.8, kg, 05/01/23 12:56:00 EDT, Weight Dosing 5. Smoker (F17.200: Nicotine dependence, unspecified, uncomplicated) consider not smoking Ordered: fluticasone-salmetero l, 2 puff(s), Inhalation, BID, 1 EA, Refill(s) 6, [facility] #04899, 174, cm, 05/01/23 12:56:00 EDT, Height/Length Dosing, 101.8, kg, 05/01/23 12:56:00 EDT, Weight Dosing Orders: phentermine, 37.5 mg = 1 tab(s), Oral, Daily, # 30 tab(s), Refills(s) 0, Pharmacy: [facility] #[id number], 174, cm, 05/01/23 12:56:00 EDT, Height/Length Dosing, [...] Oral, Daily, 3 refills Flonase 0.05 mg/inh [place], 2 spray(s), Nasal, Daily Flovent HFA 110 [...] Father. Immunizations (more content not included)... Normal [facility] Comment on above: Result Comment: Elec tronically [...] 110 Aerosol) fluticasone nasal (Flonase 0.05 mg/inh [place]) phentermine (phentermine 37.5 mg Tab) Procedures Performed Bilateral carpal tunnel syndrome, History of elbow surgery, Surgery. Discharge Vitals Heart Rate (Peripheral) 76 Blood Pressure 144/98 Height 176 cm Height 69 in Weight 105.7 kg Weight 232.54 lb BMI 34.12 What to do next Scheduled Follow-Up Appointments Saturday 1:00 PM EDT With: Ana M Bay [facility]23 Family Medicine [...] Daily, # 30 tab(s), Refills(s) 0, Pharmacy: [facility] #[id number], 176, cm, 03/04/23 8:31:00 EDT, Height/Length Dosing, 109.2, kg, 03/04/23 8:31:00 EDT, Weight Dosing phentermine, 37.5 mg = 1 tab(s), Oral, Daily, X 30 day(s), # 30 tab(s), Refills(s) 0, [facility]acy: [facility] #[id number], 176, cm, 04/01/23 9:06:00 EDT, Height/Length Dosing, 105.7, kg, 04/01/23 9:06:00 EDT, Weight Dosing 3. Weight gain (R63.5: Abnormal weight gain) see above Ordered: phentermine, 37.5 mg = 1 tab(s), Oral, Daily, # 30 tab(s), Refills(s) 0, Pharmacy: [facility] #[id number], 176, cm, 03/04/23 8:31:00 EDT, Height/Length Dosing, 109.2, kg, 03/04/23 8:31:00 EDT, Weight Dosing phentermine, 37.5 mg = 1 tab(s), Oral, Daily, X 30 day(s), # 30 tab(s), Refills(s) 0, Pharmacy: [facility] #[id number], 176, cm, 04/01/23 9:06:00 EDT, Height/Length Dosing, [...] Oral, Daily, 3 refills Flonase 0.05 mg/inh [place], 2 spray(s), Nasal, Daily Flovent HFA 110 [...] Ad26 vaccine 03/17/2021 Recorded 2023-02-12: [email or web address] Normal [facility] Comment on above: Result Comment: Elec tronically [...] 110 Aerosol) fluticasone nasal (Flonase 0.05 mg/inh [place]) phentermine (phentermine 37.5 mg Tab) Procedures Performed Bilateral carpal tunnel syndrome, History of elbow surgery, Surgery. Discharge Vitals Heart Rate (Peripheral) 70 Blood Pressure 120/80 Height 176 cm Height 69 in Weight 109.2 kg Weight 240.24 lb BMI 35.25 What to do next Scheduled Follow-Up Appointments Saturday 8:40 AM EDT With: Ana M Bay Where: [facility] [place] Normal [facility] Auto Diffon 03-04-2023 Basophils/100 WBC (Bld) 0.7 % Normal 0.0-2.0 [facility] Comment on above: Order Comment: Order Added by Discern Expert. Performed By: #### 1 [id number], [id number], [id number], 1603652, 1580170, 0867083, [id number] ####[address] [place] [address] Basophils/Leukocytes Auto (Bld) [Pure # fraction] 0.1 E9/L Normal 0.0-0.2 [facility] Comment on above: Order Comment: Order Added by Discern Expert. Performed By: #### 1 [id number], [id number], [id number], 0552756, 2316276, 7678634, 8831820 ####[facility] [id number] [place] [address] Eosinophils/100 WBC (Bld) 6.3 % Normal 0.0-8.0 [facility] Comment on above: Order Comment: Order Added by Discern Expert. Performed By: #### 1 [id number], 7447275, 46381269, 0304730, 3718677, 5492730, 5837457 ####[address] [address] Eosinophils/Leukocyte s Auto (Bld) [Pure # fraction] 0.7 E9/L High 0.0-0.5 [facility] Comment on above: Order Comment: Order Added by Discern Expert. Performed By: #### 1 [id number], 6955932, 12741127, 4815126, 5031150, 6618181, 1705468 ####[address] [address] Lymphocytes/100 WBC (Bld) 32.7 % Normal 14.0-50.0 [facility] Comment on above: Order Comment: Order Added by Discern Expert. Performed By: #### 1 [id number], 2925889, 19156909, 7227431, 3118292, 4685751, 8777286 ####[address] [place] [address] Lymphocytes/Leukocyte s Auto (Bld) [Pure # fraction] 3.7 E9/L Normal 1.0-4.0 [facility] Comment on above: Order Comment: Order Added by Discern Expert. Performed By: #### 1 [id number], 0648910, 28993721, 4507155, 3407125, 9806162, 2646415 ####[address] [address] Monocytes/100 WBC (Bld) 7.3 % Normal 4.0-14.0 [facility] Comment on above: Order Comment: Order Added by Discern Expert. Performed By: #### 1 3534380, 1588001, 11497830, 8241029, 8304894, 8031917, 7606241 ####[address] [place] [address] Monocytes/Leukocytes Auto (Bld) [Pure # fraction] 0.8 E9/L Normal 0.2-1.0 [facility] Comment on above: Order Comment: Order Added by Discern Expert. Performed By: #### 1 2955677, 2477987, 65512803, 7603490, 4607154, 6462496, 6611644 ####[address] [address] Neutrophils/100 WBC (Bld) 53.0 % Normal 36.0-75.0 [facility] Comment on above: Order Comment: Order Added by Discern Expert. Performed By: #### 1 [id number], 2875439, 37249003, 7173905, 1794423, 7226964, 6167034 ####[address] [address] Neutrophils/Leukocyte s Auto (Bld) [Pure # fraction] 6.0 E9/L Normal 2.0-7.5 [facility] Comment on above: Order Comment: Order Added by Discern Expert. Performed By: #### 1 [id number], 2988110, 02174200, 9334519, 4647107, 5802865, 0399938 ####[address] [place] [address] CBC w/ Auto Diffon 3 Erythrocyte distribution width (RBC) [Ratio] 14.5 % High 10.9-14.2 [facility] Comment on above: Performed By: #### 1 [id number], 9276948, 93906556, 6709786, 0823746, 9591133, 8864570 ####[address] [address] Hematocrit (Bld) [Volume fraction] 50.3 % High 37.7-49.0 [facility] Comment on above: Performed By: #### 1 6957051, 8269607, 90313666, 3585550, 2665918, 1155215, 4938545 ####[facility] [address] [place] [address] Hemoglobin (Bld) [Mass/Vol] 16.0 g/dL Normal 13.5-17.5 [facility] Comment on above: Performed By: #### 1 [id number], 6369607, 30948197, 1630909, 3253517, 3348281, 6963759 ####[facility] [address] MCH (RBC) [Entitic mass] 28.1 pg Normal 27.0-34.0 [facility] Comment on above: Performed By: #### 1 2626878, 6198192, 12600637, 3102496, 0400139, 1294107, 0716872 ####[facility] [address] [place] [address] MCHC (RBC) [Mass/Vol] 31.7 g/dL Normal 31.4-36.0 [facility] Comment on above: Performed By: #### 1 8906149, 8205578, 71475574, 1476825, 4308990, 7200570, 0484275 ####[facility] [address] [place] [address] MCV (RBC) [Entitic vol] 88.5 fL Normal 80.0-100.0 [facility] Comment on above: Performed By: #### 1 0841849, 5038842, 13042086, 3631367, 0503377, 1302036, 8273031 ####[facility] [address] [place] [address] Platelet mean volume (Bld) [Entitic vol] 9.3 fL Normal 6.4-10.8 [facility] Comment on above: Performed By: #### 1 [id number], 7009538, 83905434, 6357143, 6649216, 2730214, 4830510 ####[facility] [address] [place] [address] Platelets (Bld) [#/Vol] 270.0 E9/L Normal 150.0-500.0 [facility] Comment on above: Performed By: #### 1 0191295, 8488748, 91674909, 4931838, 4559502, 2737828, 9999965 ####[facility] [address] [place] [address] RBC (Bld) [#/Vol] 5.7 E12/L Normal 4.3-5.9 [facility] Comment on above: Performed By: #### 1 4726910, 8584291, 43699996, 0860549, 1572774, 9691310, 5991409 ####[facility] [address] [place] [address] WBC corrected for nucl RBC Auto (Bld) [#/Vol] 11.4 E9/L High 4.0-11.0 [facility] Comment on above: Performed By: #### 1 8895273, 6226347, 91189738, 9384938, 7213993, 4217598, 3467123 ####[facility] [address] [place] [address] CHEMISTRYOrdered By: SYSTEM SYSTEM on 03-04-2023 Albumin [...] 1.61 m[IU]/L Normal 0.34 - 5.60 mcIU/mL [facility] Remisol Urea nitrogen [Mass/Vol] 19 mg/dL Normal 5 - 21 mg/dL [facility] Remisol Urea nitrogen/Creatinine [Mass ratio] 17 mg/mg Normal 10 - 20 [facility] Remisol CMPon 03-04-2023 Albumin [Mass/Vol] 4.3 g/dL Normal 3.3-5.0 [facility] Comment on above: Performed By: #### 1 7903945, 7656638, 46314149, 1573058, 4889476, 7858325, 5773760 ####[facility] [address] [place] [address] Albumin/Globulin (S) [Mass conc ratio] 1.4 Normal 1.1-2.2 [facility] Comment on above: Performed By: #### 1 1936315, 2078672, 42724320, 0608336, 4944177, 4026472, 0015206 ####[facility] [address] [place] [address] ALP [Catalytic activity/Vol] 54 Int._Unit/L Normal 21-98 [facility] Comment on above: Performed By: #### 1 0995403, 2124356, 01765522, 6897117, 4196411, 4579222, 7700270 ####[facility] [address] [place] [address] ALT No additional P-5'-P [Catalytic activity/Vol] 31 Int._Unit/L Normal 6-46 [facility] Comment on above: Performed By: #### 1 5859577, 9630495, 11984997, 8202369, 1439114, 7831709, 6834166 ####[facility] [address] [place] [address] Anion gap [Moles/Vol] 12 mmol/L Normal 6-16 [facility] Comment on above: Performed By: #### 1 2156810, 1274889, 20671572, 4928351, 6917004, 8041763, 8295099 ####[facility] [address] [place] [address] AST [Catalytic activity/Vol] 26 Int._Unit/L Normal 5-43 [facility] Comment on above: Performed By: #### 1 2341710, 1331086, 89363554, 0097904, 8787671, 7321573, 7790756 ####[facility] [address] [place] [address] Bilirubin [Mass/Vol] 0.6 mg/dL Normal 0.0-1.1 [facility] Comment on above: Performed By: #### 1 3328883, 6250795, 21644421, 5932450, 6607987, 4007919, 9532658 ####[facility] [address] [place] [address] Calcium [Mass/Vol] 9.3 mg/dL Normal 8.9-11.1 [facility] Comment on above: Performed By: #### 1 0826278, 4086728, 19045952, 8676812, 3904650, 7127481, 6953471 ####[facility] [address] [place] [address] Chloride [Moles/Vol] 103 mmol/L Normal 101-111 [facility] Comment on above: Performed By: #### 1 3173384, 4988603, 15509190, 9449999, 8146851, 0380020, 0118744 ####[facility] [address] [place] [address] CO2 [Moles/Vol] 25 mmol/L Normal 21-31 [facility] Comment on above: Performed By: #### 1 1340190, 7430588, 09975472, 6223672, 2408989, 6774788, 4796802 ####[facility] [address] [place] [address] Creatinine [Mass/Vol] 1.1 mg/dL Normal 0.5-1.3 [facility] Comment on above: Performed By: #### 1 5465168, 2960240, 73219590, 9629338, 2129061, 1342712, 6511232 ####[facility] [address] [place] [address] Globulin (S) [Mass/Vol] 3.1 g/dL Normal 1.4-4.0 [facility] Comment on above: Performed By: #### 1 4048720, 2929057, 81812691, 4940274, 6711631, 6849897, 8841231 ####[facility] [address] [place] [address] Glucose [Mass/Vol] 97 mg/dL Normal 55-199 [facility] Comment on above: Result Comment: If t his glucose result represents a fasting glucose, interpretation should refer to the following reference range: 55-99 mg/dL Performed By: #### 1 0034097, 3440053, 51285425, 0253423, 9144737, 0959604, 8442792 ####[facility] [address] [place] [address] Potassium [Moles/Vol] 4.3 mmol/L Normal 3.5-5.3 [facility] Comment on above: Performed By: #### 1 3488713, 8150374, 23407438, 1522879, 4513700, 0335796, 8269391 ####[facility] [address] [place] [address] Protein [Mass/Vol] 7.4 g/dL Normal 6.0-7.8 [facility] Comment on above: Performed By: #### 1 1479696, 9837316, 84228219, 6876740, 4969169, 6415264, 1232759 ####[facility] [address] [place] [address] Sodium [Moles/Vol] 136 mmol/L Normal 135-145 [facility] Comment on above: Performed By: #### 1 3059799, 7913679, 76329637, 7453748, 5643111, 4561651, 4139001 ####[facility] [address] [place] [address] Urea nitrogen [Mass/Vol] 19 mg/dL Normal 5-21 [facility] Comment on above: Performed By: #### 1 4584034, 6200076, 33037205, 0312736, 9294290, 7929666, 4845635 ####[facility] [address] [place] [address] Urea nitrogen/Creatinine [Mass ratio] 17 No Units Normal 10-20 [facility] Comment on above: Performed By: #### 1 0032808, 5817291, 22455165, 8024420, 5116189, 2442488, 0403126 ####[facility] [address] [place] [address] Family Medicine Office/Clini c Noteon 03-04-2023 Family [...] Daily, # 30 tab(s), Refills(s) 0, Pharmacy: [facility] #[id number], 176, cm, 03/04/23 8:31:00 EDT, Height/Length Dosing, 109.2, kg, 03/04/23 8:31:00 EDT, Weight Dosing CBC w/ Auto Diff Cologuard Screening Test Comprehensive Metabolic Panel Lab Specimen Collect 54078 Lipid Panel PSA Screen, Total Thyroid Stimulating Hormone 2. Prostate cancer screening (Z12.5: Encounter for screening for malignant neoplasm of prostate) PSA drawn in office today Ordered: Lab Specimen Collect 91428 PSA Screen, Total 3. Colon cancer screening (Z12.11: Encounter for screening for malignant neoplasm of colon) cologuard ordered Ordered: Cologuard Screening Test Lab Specimen Collect 97655 4. Excessive dietary caloric intake (R63.2: Polyphagia) adipex ordered Ordered: phentermine, 37.5 mg = 1 tab(s), Oral, Daily, # 30 tab(s), Refills(s) 0, Pharmacy: [facility] #[id number], 176, cm, 03/04/23 8:31:00 EDT, Height/Length Dosing, 109.2, kg, 03/04/23 8:31:00 EDT, Weight Dosing Lab Specimen Collect 43924 5. Weight gain (R63.5: Abnormal weight gain) adipex ordered. rtc 4 weeks for weight check Ordered: phentermine, 37.5 mg = 1 tab(s), Oral, Daily, # 30 tab(s), Refills(s) 0, [facility]acy: [facility] #[id number], 176, cm, 03/04/23 8:31:00 EDT, Height/Length Dosing, 109.2, kg, 03/04/23 8:31:00 EDT, Weight Dosing Lab Specimen Collect [id number] 6. BMI 35.0-35.9,adult (Z68.35: Body mass index [BMI] 35.0-35.9, adult) BMI education complete Ordered: phentermine, 37.5 mg = 1 tab(s), Oral, Daily, # 30 tab(s), Refills(s) 0, Pharmacy: [facility] #[id number], 176, cm, 03/04/23 8:31:00 EDT, Height/Length Dosing, [...] Albuterol (E (more content not included)... Normal [facility] Comment on above: Result Comment: Elec tronically Signed By: Ana M Bay\.br\Date and Time Signed: 03/04/23 08:54 EDT Formson 03-04-2023 Forms [id number]:127 Normal [facility] HEMATOLOGYOrdered By: SYSTEM SYSTEM on 03-04-2023 Basophils/100 [...] 88.5 fL Normal 80.0 - 100.0 fL [facility] HemeAutoSS Platelet mean volume (Bld) [Entitic vol] 9.3 fL Normal 6.4 - 10.8 fL [facility] HemeAutoSS Platelets (Bld) [#/Vol] 270.0 E9/L Normal 150.0 - 500.0 E9/L [facility] HemeAutoSS RBC (Bld) [#/Vol] 5.7 E12/L Normal 4.3 - 5.9 E12/L [facility] HemeAutoSS WBC corrected for nucl RBC Auto (Bld) [#/Vol] 11.4 E9/L High 4.0 - 11.0 E9/L [facility] HemeAutoSS Lipid Panelon 03-04-2023 Cholesterol [Mass/Vol] 289 mg/dL High 120-200 [facility] Comment on above: Performed By: #### 1 1758393, 0864773, 44746838, 6624051, 1958784, 8180475, 1126929 ####[facility] [address] [place] [address] Cholesterol in HDL [Mass/Vol] 50 mg/dL Invalid Interpretation Code [facility] Comment on above: Result Comment: HDL > or equal to 60 mg/dL: Low cardiovascular risk HDL < 40 mg/dL : High cardiovascular risk Performed By: #### 1 5323584, 6202211, 01508769, 5642307, 4454164, 9894597, 8265890 ####[facility] [address] [place] [address] Cholesterol in LDL [Mass/Vol] 168 mg/dL High <=129 [facility] Comment on above: Performed By: #### 1 8781767, 6332286, 91611822, 3064991, 9105676, 1953138, 5153409 ####[facility] [address] [place] [address] Cholesterol in VLDL [Mass/Vol] 48 mg/dL High 7-40 [facility] Comment on above: Performed By: #### 1 9627284, 3359800, 83631300, 3418413, 1474424, 2245312, 1815012 ####[facility] [address] [place] [address] Triglyceride [Mass/Vol] 241 mg/dL High <=149 [facility] Comment on above: Performed By: #### 1 8417579, 3117418, 70523515, 4623595, 0954742, 3437590, 8903217 ####[facility] [address] [place] [address] Medication Consenton 023 Medication Consent [id number]:127 Normal [facility] PSA Screen, Totalon 03-04-20 23 Prostate specific Ag [Mass/Vol] 0.7 ng/mL Normal 0.1-3.5 [facility] Comment on above: Result Comment: The concentration of PSA determined by different manufacturers can vary due to differences in assay methods and reagent specificity. Values obtained from different assay methods cannot be used interchangeably. The methodology used for this result was chemiluminescence using [employer]'s Access [employer] PSA reagent. Performed By: #### 1 2176689, 5495493, 33859916, 0874695, 2822855, 5094053, 8015239 ####[facility] [address] [place] [address] Patient Educationon 03-04-20 23 Patient Education Nutrition [...] numbers. This can be done either in [place] ([place] or metric measurements. Note that charts and online BMI calculators are available to help you find your BMI quickly and easily without having to do these calculations yourself. To calculate your BMI in [place] ([place] measurements: 1. Measure your weight in [...] for Disease Control and Prevention: www.cdc.gov ? [place] Heart [employer]: www.heart.org ? National Heart, Lung, and Blood [place]: www.nhlbi.nih.gov Summary ? Body mass index (BMI) is a number that is calculated from a person's weight and height. ? BMI may help estimate how much of a person's weight is composed of fat. BMI can help identify those who may be at higher risk for certain medical problems. ? BMI can be measured using Egyptian measurements or metric measurements. ? BMI charts are used to identify whether you are underweight, normal weight, overweight, or obese. This information is not intended to replace advice given to you by your health care provider. Make sure you discuss any questions you have with your health care provider. Document Revised: 07/06/2020 Document Reviewed: 05/13/2020 [employer] Patient Education ? 2022 [employer] Normal [facility] TSHon 03-04-2023 TSH Qn 1.61 m[IU]/L Normal 0.34-5.60 [facility] Comment on above: Performed By: #### 1 1010471, 4056441, 79177293, 6983750, 8354330, 8714597, 7154345 ####[facility] [address] [place] [address] eGFRon 03-04-2023 GFR/1.73 sq M.predicted among non-blacks MDRD (S/P/Bld) [Vol rate/Area] 84 mL/min/1.73 m2 Normal >=59 [facility] Comment on above: Order Comment: Order added by Discern Expert. Result Comment: [employer]orem[employer] Machine Operator amy kidney disease could be indicated at eGFR's of less than 60 mL/min/1.73m2. Kidney failure is indicated at less than 15 mL/min/1.73m2. Performed By: #### 1 8929519, 0728060, 28116426, 8384891, 1554303, 0253469, 6211013 ####[facility] [address] [place] [address] Ambulatory Visit Summaryon 0 02-13-2023 Ambulatory Visit [...] with adapter) fluticasone nasal (Flonase 0.05 mg/inh [place]) Procedures Performed Bilateral carpal tunnel syndrome, History of elbow surgery, Surgery. Discharge Vitals Heart Rate (Peripheral) 90 Respiratory Rate 18 Blood Pressure 154/106 Height 69 in Height 176 cm Weight 238.48 lb Weight 108.4 kg BMI 34.99 What to do next Scheduled Follow-Up Appointments Saturday. 2022 8:20 AM EDT With: Ana M Bay Where: [facility] [place] Normal [facility] Family Medicine Office/Clini c Noteon 02-13-2023 Family [...] puff(s), Inhalation, q6hr, 8.5 gm, Refill(s) 2, [facility] #33209, 176, cm, 02/13/23 9:01:00 EDT, Height/Length Dosing, 108.4, kg, 02/13/23 9:01:00 EDT, Weight Dosing budesonide-formoterol , 2 puff(s), Inhalation, BID, 1 EA, Refill(s) 2, [facility] #74063, 176, cm, 02/13/23 9:01:00 EDT, Height/Length Dosing, 108.4, kg, 02/13/23 9:01:00 EDT, Weight Dosing fluticasone nasal, 2 spray(s), Nasal, Daily, 16 gram, Refill(s) 0, each nostril, [facility] #29308, 176, cm, 02/13/23 9:01:00 EDT, Height/Length Dosing, 108.4, kg, 02/13/23 9:01:00 EDT, Weight Dosing 2. Nasal congestion (R09.81: Nasal congestion) flonase sent to pharmacy. pt encouraged to get sudafed Ordered: albuterol, 2 puff(s), Inhalation, q6hr, 8.5 gm, Refill(s) 2, [facility] #[id number], 176, cm, 02/13/23 9:01:00 EDT, Height/Length Dosing, 108.4, kg, 02/13/23 9:01:00 EDT, Weight Dosing budesonide-formoterol , 2 puff(s), Inhalation, BID, 1 EA, Refill(s) 2, [facility] #27612, 176, cm, 02/13/23 9:01:00 EDT, Height/Length Dosing, 108.4, kg, 02/13/23 9:01:00 EDT, Weight Dosing fluticasone nasal, 2 spray(s), Nasal, Daily, 16 gram, Refill(s) 0, each nostril, [facility] #67773, 176, cm, 02/13/23 9:01:00 EDT, Height/Length Dosing, 108.4, kg, 02/13/23 9:01:00 EDT, Weight Dosing 3. Hypertension (I10: Essential (primary) hypertension) BP elevated. meds sent pt to return in 3 weeks for BP check and lab work. he was instructed to be NPO for 8-10 hours Ordered: albuterol, 2 puff(s), Inhalation, q6hr, 8.5 gm, Refill(s) 2, [facility] #28410, 176, cm, 02/13/23 9:01:00 EDT, Height/Length Dosing, 108.4, kg, 02/13/23 9:01:00 EDT, Weight Dosing budesonide-formoterol , 2 puff(s), Inhalation, BID, 1 EA, Refill(s) 2, [facility] #[id number], 176, cm, 02/13/23 9:01:00 EDT, Height/Length Dosing, 108.4, kg, 02/13/23 9:01:00 EDT, Weight Dosing fluticasone nasal, 2 spray(s), Nasal, Daily, 16 gram, Refill(s) 0, each nostril, [facility] #76658, 176, cm, 02/13/23 9:01:00 EDT, Height/Length Dosing, 108.4, kg, 02/13/23 9:01:00 EDT, Weight Dosing 4. Cough (R05.9: Cough, unspecified) inhaler orders. sent to pharmacy Ordered: albuterol, 2 puff(s), Inhalation, q6hr, 8.5 gm, Refill(s) 2, [facility] #45147, 176, cm, 02/13/23 9:01:00 EDT, Height/Length Dosing, 108.4, kg, 02/13/23 9:01:00 EDT, Weight Dosing budesonide-formoterol , 2 puff(s), Inhalation, BID, 1 EA, Refill(s) 2, [facility] #65701, 176, cm, 02/13/23 9:01:00 EDT, Height/Length Dosing, 108.4, kg, 02/13/23 9:01:00 EDT, Weight Dosing fluticasone nasal, 2 spray(s), Nasal, Daily, 16 gram, Refill(s) 0, each nostril, [facility] #29557, 176, cm, 02/13/23 9:01:00 EDT, Height/Length Dosing, 108.4, kg, 02/13/23 9:01:00 EDT, Weight Dosing Orders: albuterol, 2.5 mg, 3 mL, NEB, q4hr, 100 EA, Refill(s) 1, as needed, [facility] #32202, 176, cm, 02/13/23 9:01:00 EDT, Height/Length Dosing, 108.4, kg, 02/13/23 9:01:00 EDT, Weight Dosing bisoprolol-hydrochlor othiazide, 1 tab(s), Oral, Daily, 90 tab(s), Refill(s) 3, [facility] #31301, 176, cm, 02/13/23 9:01:00 EDT, Height/ (more content not included)... Normal [facility] Comment on above: Result Comment: Elec tronically [...] by: TABITHA FISHER Date: 2022-01-07 13:30 Normal [facility] Encounters Encounter Date Encounter Type Care Provider Facility Start: 01-30-2024 ambulatory Ana M L Ismael Facility: [facility] [place] Start: 12-31-2023 End: 01-01-2024 ambulatory Ana M L Ismael Facility: [facility] Start: 12-02-2023 End: 12-03-2023 ambulatory Ana M L Ismael Facility: [facility] Start: 11-04-2023 End: 11-05-2023 ambulatory Ana M L Ismael Facility: [facility] Start: 10-23-2023 End: 10-24-2023 ambulatory Ana M L Ismael Facility:[facility] [facility] Start: 08-21-2023 End: 08-22-2023 ambulatory Ana M L Ismael Facility: [facility] [place] [facility] Start: 07-24-2023 End: 07-25-2023 ambulatory Ana M L Ismael Facility: [facility] [place] [facility] Start: 06-26-2023 End: 06-27-2023 ambulatory Ana M L Ismael Facility: [facility] [place] [facility] Start: 05-29-2023 End: 05-30-2023 ambulatory Ana M L Ismael Facility:[facility] [place] [facility] Start: 05-01-2023 End: 05-02-2023 ambulatory Ana M L Ismael Facility: [facility] [place] [facility] Start: 04-01-2023 End: 04-02-2023 ambulatory Ana M L Ismael Facility:[facility] Start: 03-04-2023 End: 03-05-2023 ambulatory Ana M L Ismael Facility:[facility] Start: 03-04-2023 End: 03-04-2023 Lab Drop off Ana M L Ismael [facility] Start: 02-13-2023 End: 02-14-2023 ambulatory Ana M L Ismael Facility: [facility] [place] [facility] Start: 01-18-2023 ambulatory Ana M Ismael Facility:[facility] Start: 01-07-2022 End: 01-07-[address] [...] ) mRNA BNT-162b2 vax Ana M Ismael [facility] 03-17-2021 SARS-CoV-2 (COVID-19 ) Ad26 vaccine, recombinant Ana M Ismael [facility] Comment on above: Result Comment: 2022: [id number] Payers Date Payer Category Payer Unknown [id number] 1975 Unknown [id number] 2.16.84 [id number] 1975 Unknown [id number] 2.16.8 [id number] 1977 Unknown [id number] 2.16.8 40.1.999334.3.579.2.727 1977 Unknown [id number] 2.16.8 40.1.387995.3.579.2.727 1977 Unknown [id number] 2.16.8 40.1.489936.3.579.2.727 1977 Unknown [id number] 2.16.8 40.1.985622.3.579.2.727 1977 Unknown [id number] 2.16.8 40.1.153145.3.579.2.727 1977 Unknown [id number] 2.16.8 40.1.468392.3.579.2.727 1977 Unknown [id number] 2.16.8 40.1.102137.3.579.2.727 1977 Unknown [id number] 2.16.8 40.1.157363.3.579.2.727 1977 Unknown [id number] 2.16.8 40.1.101751.3.579.2.727 1977 Unknown [id number] 2.16.8 40.1.667871.3.579.2.727 1977 Unknown [id number] 2.16.8 40.1.347863.3.579.2.727 1977 Unknown [id number] 2.16.8 40.1.599273.3.579.2.727 1977 Unknown [id number] 2.16.8 40.1.760707.3.579.2.727 1959 Unknown [id number] Social History Date Type Detail Facility Start: 03-04-2023 Tobacco smoking status Heavy t obacco smoker (finding) [facility] Tobacco smoking status Never [facility] Sex Assigned At Male [facility] Evaluation + Plan note Note Date & Type Note Facility Evaluation + Plan note Future Appointments Appointment Date:04/01/2023 08:40:00 AM Scheduled Provider:Ana M Bay Location:[facility] Appointment Type:[facility] Hospital course Narrative Note Date & Type Note Facility Hospital course Narrative No data available for this section [facility] Hospital Discharge instructions Note Date & Type Note Facility Hospital Discharge instructions No data available for this section [facility] Progress note Note Date & Type Note Facility Progress note No data available for this section [facility] Summary Purpose Family History No Family History Records FoundNo Family History Records Found Advance Directives No Advanced Directives Records FoundNo Advanced Directives Records Found Additional Source Comments (unrecognized sect ion and content) No Status Records FoundNo Status Records Found INFORMATION SOURCE (unrecogn ized section and content) DATE CREATED AUTHOR 01/08/2022 [facility] DATE CREATED AUTHOR AUTHOR'S ORGANIZ ATION 01/01/2024 [facility] Patient Care team informatio n (unrecognized section and content) Personnel Name: Ana M Bay Address: Address: [address] [place] [address]- FOR RECORDS PERTAINING TO PATIENTS WHO ARE [...] BE BASED ON THE PRIMARY CLINICAL RECORDS. [facility] [employer] [facility]. provides no warranty or guarantee of the accuracy or completeness of information in this document.
== END 2024-01-23 15:08 | disposition home or self-care (01) ==
LOC: MRI 15:07
PROVIDERS: PCP Family Medicine; Visit Provider Nurse Practitioner
DX: M25.511 Pain in right shoulder (principal); M24.111 Other articular cartilage disorders, right shoulder
CPT/HCPCS: 70030; 73221